=== PATIENT | male | born 2000 | race American Indian/Alaskan Native ===

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

== ENCOUNTER 2019-03-15 23:41 | Emergency (ER) | payer SELFPAY ==
[2019-03-16 00:07] VITALS: BP 127/77
== END 2019-03-16 00:08 | disposition left against medical advice (07) ==
LOC: ED 23:41
DX: R41.82 Altered mental status, unspecified (principal); Z53.21 Procedure and treatment not carried out due to patient leaving prior to being seen by health care provider

== ENCOUNTER 2019-11-29 16:33 | Emergency (ER) | payer SELFPAY ==
[2019-11-29] MEDS ORDERED: ZIPRASIDONE MESYLATE 20 MG VIAL IM ONE ×2 (16:47→16:48)
[2019-11-29 17:38] LABS: Basophils % (Auto) 0.4 % (0.0-1.8); Hematocrit 42.8 % (35.5-45.6); Hemoglobin 14.1 gm/dl (11.8-15.2); Lymphocytes # (Auto) 1.3 K/mm3 (1.2-5.4); Lymphocytes % (Auto) 20.5 % (13.4-35.0); Mean Corpuscular HGB Conc 33 % (32-34); Mean Corpuscular Volume 90 fl (84-94); Monocytes # (Auto) 0.4 K/mm3 (0.0-0.8); Monocytes % (Auto) 6.8 % (0.0-7.3); Platelet Count 136 K/mm3 (140-440); Red Blood Count 4.77 M/mm3 (3.65-5.03); Red Cell Distribution Width 13.6 % (13.2-15.2)
[2019-11-29 17:50] LABS: BUN/Creatinine Ratio 16; Blood Urea Nitrogen 16 mg/dL (9-20); Calcium 9.5 mg/dL (8.4-10.2); Hemolysis Index 13
--- NOTE | 2019-11-29 18:05 | Emergency Department Report ---
ED Psych HPI - General Chief Complaint: Psych Stated Complaint: MH EVAL Time Seen by Provider: 11/29/19 16:47 Source: EMS Mode of arrival: Stretcher - History of Present Illness MD Complaint: altered mental status -: days(s) (1) Associated Psychiatric Symptoms: racing thoughts, visual hallucinations, delusions Quality: constant Context: recent drug abuse (Family states that patient smoke something last night but they are unaware of what.) Details of Plan: Patient was found walking nude in her apartment complex today. He has very erratic behavior and is yelling things at random. Patient is when I asked him how he was feeling yelled "coronavirus" patient also yelling that he is homosexual and other unrelated things. Patient has no mental health history according to his mother - Related Data Previous Rx's Medication Instructions Recorded Last Taken Type Diclofenac Sodium 75 mg PO BID #14 tablet. 08/13/17 Unknown Rx Allergies Allergy/AdvReac Type Severity Reaction Status Date / Time No Known Allergies Allergy Unverified 08/13/17 04:29 ED Review of Systems ROS: Stated complaint: MH EVAL Other details as noted in HPI Comment: Unobtainable due to pts medical conditions ED Past Medical Hx - Past Medical History Previous Medical History?: Yes Hx Psychiatric Treatment: Yes (ADHD, Schizophernia) - Surgical History Past Surgical History?: No - Social History Smoking Status: Smoker, Current Status Unknown - Medications Home Medications: Home Medications Medication Instructions Recorded Confirmed Last Taken Type Diclofenac Sodium 75 mg PO BID #14 tablet. 08/13/17 Unknown Rx ED Physical Exam - General Limitations: Altered Mental Status General appearance: alert, anxious, in distress - Head Head exam: Present: atraumatic, normocephalic - Eye Eye exam: Present: normal appearance, PERRL, EOMI - ENT ENT exam: Present: normal orophraynx, mucous membranes moist - Neck Neck exam: Present: normal inspection - Respiratory Respiratory exam: Present: normal lung sounds bilaterally. Absent: respiratory distress, wheezes, rales, rhonchi - Cardiovascular Cardiovascular Exam: Present: regular rate, normal rhythm, normal heart sounds. Absent: systolic murmur, diastolic murmur, rubs, gallop - GI/Abdominal GI/Abdominal exam: Present: soft, normal bowel sounds. Absent: distended, tenderness, guarding, rebound - Rectal Rectal exam: Present: deferred - Extremities Exam Extremities exam: Present: normal inspection - Back Exam Back exam: Present: normal inspection - Neurological Exam Neurological exam: Present: alert, oriented X3 - Psychiatric Psychiatric exam: Present: agitated - Skin Skin exam: Present: warm, dry, intact, normal color. Absent: rash ED Course Vital Signs 11/29/19 16:59 Temperature 98.1 F Pulse Rate 110 H Respiratory 16 Rate Blood Pressure 157/80 [Left] O2 Sat by Pulse 96 Oximetry - Reevaluation(s) Reevaluation #1: 11/29/19 18:05 Patient was placed on a 1013 because of his erratic behavior. Patient also is medically cleared at this time for psychiatric evaluation. ED Medical Decision Making - Lab Data Result diagrams: 11/29/19 17:27 11/29/19 17:27 Lab Results 11/29/19 11/29/19 11/29/19 Range/Units 17:27 17:27 17:27 WBC 6.1 (4.5-11.0) K/mm3 RBC 4.77 (3.65-5.03) M/mm3 Hgb 14.1 (11.8-15.2) gm/dl Hct 42.8 (35.5-45.6) % MCV 90 (84-94) fl MCH 30 (28-32) pg MCHC 33 (32-34) % RDW 13.6 (13.2-15.2) % Plt Count 136 L (140-440) K/mm3 Lymph % (Auto) 20.5 (13.4-35.0) % Faulk % (Auto) 6.8 (0.0-7.3) % Eos % (Auto) 0.0 (0.0-4.3) % Baso % (Auto) 0.4 (0.0-1.8) % Lymph # 1.3 (1.2-5.4) K/mm3 Faulk # 0.4 (0.0-0.8) K/mm3 Eos # 0.0 (0.0-0.4) K/mm3 Baso # 0.0 (0.0-0.1) K/mm3 Seg Neutrophils % 72.3 H (40.0-70.0) % Seg Neutrophils # 4.4 (1.8-7.7) K/mm3 Sodium 135 L (137-145) mmol/L Potassium 3.6 (3.6-5.0) mmol/L Chloride 98.7 (98-107) mmol/L Carbon Dioxide 22 (22-30) mmol/L Anion Gap 18 mmol/L BUN 16 (9-20) mg/dL Creatinine 1.0 (0.8-1.5) mg/dL Estimated GFR > 60 ml/min BUN/Creatinine Ratio 16 % Glucose 99 (75-100) mg/dL Calcium 9.5 (8.4-10.2) mg/dL Salicylates < 0.3 L (2.8-20.0) mg/dL Acetaminophen (10.0-30.0) ug/mL Plasma/Serum Alcohol (0-0.07) % 11/29/19 11/29/19 Range/Units 17:27 17:27 WBC (4.5-11.0) K/mm3 RBC (3.65-5.03) M/mm3 Hgb (11.8-15.2) gm/dl Hct (35.5-45.6) % MCV (84-94) fl MCH (28-32) pg MCHC (32-34) % RDW (13.2-15.2) % Plt Count (140-440) K/mm3 Lymph % (Auto) (13.4-35.0) % Faulk % (Auto) (0.0-7.3) % Eos % (Auto) (0.0-4.3) % Baso % (Auto) (0.0-1.8) % Lymph # (1.2-5.4) K/mm3 Faulk # (0.0-0.8) K/mm3 Eos # (0.0-0.4) K/mm3 Baso # (0.0-0.1) K/mm3 Seg Neutrophils % (40.0-70.0) % Seg Neutrophils # (1.8-7.7) K/mm3 Sodium (137-145) mmol/L Potassium (3.6-5.0) mmol/L Chloride (98-107) mmol/L Carbon Dioxide (22-30) mmol/L Anion Gap mmol/L BUN (9-20) mg/dL Creatinine (0.8-1.5) mg/dL Estimated GFR ml/min BUN/Creatinine Ratio % Glucose (75-100) mg/dL Calcium (8.4-10.2) mg/dL Salicylates (2.8-20.0) mg/dL Acetaminophen < 5.0 L (10.0-30.0) ug/mL Plasma/Serum Alcohol < 0.01 (0-0.07) % Critical care attestation.: If time is entered above; I have spent that time in minutes in the direct care of this critically ill patient, excluding procedure time. ED Disposition Condition: Stable Referrals: PRIMARY CARE, [Primary Care Provider] - 3-5 Days
[2019-11-29 20:54] LABS: Bacteria,Urine 1+ /HPF (Negative); Bilirubin,Urine NEG (Negative); Blood,Urine NEG (Negative); Color,Urine Yellow (Yellow); Mucus,Urine FEW /HPF; Protein,Urine <15 mg/dL mg/dL (Negative); RBC,Urine < 1.0 /HPF (0.0-6.0); Urobilinogen,Urine < 2.0 mg/dL (<2.0)
[2019-11-29 21:01] LABS: Amphetamine Screen,Urine PRESUMPTIVE NEGATIVE; Benzodiazepines Screen,Urine PRESUMPTIVE NEGATIVE; Cannabinoid Screen,Urine PRESUMPTIVE NEGATIVE; Cocaine Screen,Urine PRESUMPTIVE NEGATIVE; Methadone Screen,Urine PRESUMPTIVE NEGATIVE; Opiate Screen,Urine PRESUMPTIVE NEGATIVE
[2019-11-30] MEDS ORDERED: ZIPRASIDONE MESYLATE 20 MG VIAL IM ONE (04:03)
[2019-11-30] MEDS ORDERED: LORazepam 2 MG/ML VIAL IM PRN (11:08)
--- NOTE | 2019-12-01 11:14 | Consultation ---
History of Present Illness - Reason for Consult Consult date: 12/01/19 Reason for consult: Psych eval - Chief Complaint Chief complaint: Confused - History of Present Psychiatric Illness The patient is a 18yo male who presented to the ED after the pt was found yelling and running naked through his apartment complex. Psychiatry consulted to evaluate patient, treat and recommend disposition. Patient is not able to engage in meaningful conversation. He is sleeping, arouses with verbal stimuli but drifts back to sleep. Per MENTAL HEALTH ASSESSMENT: Pt is a 18 year old male who presented to the ED after the pt was found yelling and running naked through his apartment complex. When [facility] administrator asked what brought the pt in, the pt replied, "Well I haven't come in in a while because I'm scared of needles." Attempted to call both individuals listed as emergency contacts (mother and father) for collateral as the pt is providing minimal information due to psychosis; no answer at either number. Pt is displaying evidence of thought disorder/psychosis. Pt appears to be responding to internal stimuli; although pt denies any AH or VH. The pt is irritable during the assessment. The pt responds with answers incongruent to the question. Pt was yelling "coronavirus" and "homosexual" upon arrival also making inappropriate sexual comments; pt was found yelling and walking nude through apartment (pt reports he does not remember any of this); pt was combative as well. Pt is oriented to person and place only. Pt has poor judgment with fair insight. Pt reports he is unsure if he has a mental health diagnosis or has received any mental health treatment. Pt denies any current suicidal thoughts, plans or intent. When asked about SI history, pt stated, "I don't think so; I'm not sure." Pt is a poor historian currently. Pt denies homicidal ideation. In regards to substance use, pt stated that he uses, "medicine, water and orange juice," when [facility] administrator asked about substance use. The [facility] administrator asked again and the pt stated, "maybe I use cocaine; I don't know." Pt's toxicology is negative. Psychiatric Review of Systems: Unable to obtain due to patient factors Social History Unable to obtain due to patient factors Family Psychiatric History Records reviewed. No pertinent family history. Allergies As listed above Medical Review of Systems: Unable to assess due to patient factors Physical Exam: Chest: Chest inspection reveals normal expansion. Normal respiratory effort. Skin: Warm and dry with normal turgor Mental Status Exam: Unable to assess due to patient factors Psychiatric Diagnoses: R/o Substance induced Psychosis. Recommendations: MEDICATIONS: Olanzapine 5mg qhs Geodon 10mg im q12h prn severe agitation MEDICAL: Per primary team DELIRIUM PRECAUTIONS: Please TURN OFF THE TV, re-orient patient frequently, keep lights on during the day, and minimize benzodiazepines and opiates as these medications could worsen patient's confusion. TIE FASTENER: Yes DISPOSITION: Acute inpatient psychiatric hospitalization when medically stable LEGAL STATUS: 1013 FOLLOW-UP: Will follow Please contact with any questions and/or concerns. Medications and Allergies Allergies Allergy/AdvReac Type Severity Reaction Status Date / Time No Known Allergies Allergy Unverified 08/13/17 04:29 Home Medications Medication Instructions Recorded Confirmed Last Taken Type No Known Home Medications [No 11/30/19 11/30/19 Unknown History Reported Home Medications] Active Meds: Active Medications Lorazepam (Ativan) 2 mg IM Q4H PRN PRN Reason: Agitation Last Admin: 11/30/19 11:26 Dose: 2 mg Documented by: Mental Status Exam - Vital signs Last Vital Signs Temp 97.8 F 12/01/19 07:25 Pulse 69 12/01/19 07:25 Resp 20 12/01/19 07:25 BP 137/79 12/01/19 07:25 Pulse Ox 100 12/01/19 07:25 Results Result Diagrams: 11/29/19 17:27 11/29/19 17:27 All other labs normal.
[2019-12-01] MEDS ORDERED: ZIPRASIDONE MESYLATE 20 MG VIAL IM PRN (11:15)
[2019-12-01 14:12] VITALS: BP 132/95
== END 2019-12-01 16:54 ==
LOC: ED 16:33
DX: F17.200 Nicotine dependence, unspecified, uncomplicated (principal); F20.89 Other schizophrenia; F90.8 Attention-deficit hyperactivity disorder, other type
CPT/HCPCS: 36415; 80048; 80307; 81001; 85025; 96372; 99285; J2060; J3486; 80320; G0480

== ENCOUNTER 2019-12-18 19:46 | Emergency (ER) | payer SELFPAY ==
[2019-12-18 20:37] LABS: Basophils % (Auto) 0.4 % (0.0-1.8); Eosinophils # (Auto) 0.1 K/mm3 (0.0-0.4); Eosinophils % (Auto) 0.7 % (0.0-4.3); Hematocrit 43.5 % (35.5-45.6); Hemoglobin 14.2 gm/dl (11.8-15.2); Lymphocytes # (Auto) 2.3 K/mm3 (1.2-5.4); Lymphocytes % (Auto) 31.3 % (13.4-35.0); Mean Corpuscular HGB Conc 33 % (32-34); Mean Corpuscular Volume 91 fl (84-94); Platelet Count 189 K/mm3 (140-440); Red Blood Count 4.77 M/mm3 (3.65-5.03); Red Cell Distribution Width 15.4 % (13.2-15.2)
[2019-12-18 20:43] LABS: Bilirubin,Urine NEG (Negative); Blood,Urine NEG (Negative); Color,Urine Yellow (Yellow); Protein,Urine <15 mg/dL mg/dL (Negative); Sperm,Urine 1+ /HPF (NP); Urobilinogen,Urine < 2.0 mg/dL (<2.0)
[2019-12-18 20:46] LABS: Amphetamine Screen,Urine PRESUMPTIVE NEGATIVE; Benzodiazepines Screen,Urine PRESUMPTIVE NEGATIVE; Cocaine Screen,Urine PRESUMPTIVE NEGATIVE; Methadone Screen,Urine PRESUMPTIVE NEGATIVE; Opiate Screen,Urine PRESUMPTIVE NEGATIVE
[2019-12-18 20:55] LABS: BUN/Creatinine Ratio 15; Blood Urea Nitrogen 12 mg/dL (9-20); Calcium 9.6 mg/dL (8.4-10.2); Hemolysis Index 9
[2019-12-18 21:02] LABS: Cannabinoid Screen,Urine PRESUMPTIVE POSITIVE
--- NOTE | 2019-12-18 21:34 | Emergency Department Report ---
ED Psych HPI - General Chief Complaint: Psych Stated Complaint: MH Time Seen by Provider: 12/18/19 20:27 Source: patient Mode of arrival: Ambulatory Limitations: No Limitations - History of Present Illness Initial Comments: 19-year-old male with a past medical history of ADHD and schizophrenia presents to the hospital. As per triage note patient was dropped off by his stepmother stating that patient left [facility] unknown to staff. However, patient presents with paperwork showing that he was actually discharged from [facility] on December 13. He was prescribed Depakote 500 mg to take 3 tablets p.o. daily, trazodone 100 mg p.o. daily, and and Zyprexa 10 mg daily. All meds to be taken at 9 PM. Patient still has a prescription so has not filled these medications. Patient also has paperwork regarding suicidal ideation instructions. Patient does complain of "a little bit" of suicidal ideation with plan to cut himself. Patient states he wants to stop smoking marijuana and cigarettes and admits to smoking a blunt 2 days ago and is concerned that we will arrest him because of this. He denies auditory visual hallucinations. He denies physical pain. - Related Data Home Medications Medication Instructions Recorded Confirmed Last Taken Divalproex ER [DepaKOTE ER] 1,500 mg PO QHS 12/18/19 12/18/19 Unknown OLANzapine [ZyPREXA] 10 mg PO DAILY 12/18/19 12/18/19 Unknown traZODone [Desyrel] 100 mg PO QHS 12/18/19 12/18/19 Unknown Allergies Allergy/AdvReac Type Severity Reaction Status Date / Time No Known Allergies Allergy Unverified 08/13/17 04:29 ED Review of Systems ROS: Stated complaint: MH Other details as noted in HPI Comment: All other systems reviewed and negative ED Past Medical Hx - Past Medical History Previous Medical History?: Yes Hx Psychiatric Treatment: Yes (ADHD, Schizophernia) - Surgical History Past Surgical History?: No - Social History Smoking Status: Current Every Day Smoker Substance Use Type: Alcohol, Marijuana - Medications Home Medications: Home Medications Medication Instructions Recorded Confirmed Last Taken Type Divalproex ER [DepaKOTE ER] 1,500 mg PO QHS 12/18/19 12/18/19 Unknown History OLANzapine [ZyPREXA] 10 mg PO DAILY 12/18/19 12/18/19 Unknown History traZODone [Desyrel] 100 mg PO QHS 12/18/19 12/18/19 Unknown History ED Physical Exam - General Limitations: No Limitations - Other Other exam information: General: No acute distress Head: Atraumatic Eyes: normal appearance ENT: Moist mucous membranes Neck: Normal appearance, no midline tenderness Chest: Clear to auscultation bilaterally CV: Regular rate and rhythm Abdomen: Soft, normal bowel sounds, nontender, nondistended, no rebound or guarding Back: Normal inspection Extremity: Normal inspection, full range of motion Neuro: Alert O x 3, no facial asymmetry, speech clear, no gross motor sensory deficit Psych: Appropriate behavior Skin: No rash ED Course Vital Signs 12/18/19 12/18/19 12/18/19 19:51 20:33 21:00 Temperature 98.1 F 98.8 F Pulse Rate 85 85 Respiratory 20 16 16 Rate Blood Pressure 149/76 Blood Pressure 136/83 [Left] O2 Sat by Pulse 99 99 99 Oximetry ED Medical Decision Making - Lab Data Result diagrams: 12/18/19 20:19 12/18/19 20:19 Lab Results 12/18/19 12/18/19 12/18/19 Range/Units 20:19 20:19 20:19 WBC (4.5-11.0) K/mm3 RBC (3.65-5.03) M/mm3 Hgb (11.8-15.2) gm/dl Hct (35.5-45.6) % MCV (84-94) fl MCH (28-32) pg MCHC (32-34) % RDW (13.2-15.2) % Plt Count (140-440) K/mm3 Lymph % (Auto) (13.4-35.0) % Teller % (Auto) (0.0-7.3) % Eos % (Auto) (0.0-4.3) % Baso % (Auto) (0.0-1.8) % Lymph # (1.2-5.4) K/mm3 Teller # (0.0-0.8) K/mm3 Eos # (0.0-0.4) K/mm3 Baso # (0.0-0.1) K/mm3 Seg Neutrophils % (40.0-70.0) % Seg Neutrophils # (1.8-7.7) K/mm3 Sodium 139 (137-145) mmol/L Potassium 4.0 (3.6-5.0) mmol/L Chloride 101.5 (98-107) mmol/L Carbon Dioxide 22 (22-30) mmol/L Anion Gap 20 mmol/L BUN 12 (9-20) mg/dL Creatinine 0.8 (0.8-1.5) mg/dL Estimated GFR > 60 ml/min BUN/Creatinine Ratio 15 % Glucose 114 H (75-100) mg/dL Calcium 9.6 (8.4-10.2) mg/dL Urine Color (Yellow) Urine Turbidity (Clear) Urine pH (5.0-7.0) Ur Specific Offerman (1.003-1.030) Urine Protein (Negative) mg/dL Urine Glucose (UA) (Negative) mg/dL Urine Ketones (Negative) mg/dL Urine Blood (Negative) Urine Nitrite (Negative) Urine Bilirubin (Negative) Urine Urobilinogen (<2.0) mg/dL Ur Leukocyte Esterase (Negative) Urine WBC (Auto) (0.0-6.0) /HPF Urine RBC (Auto) (0.0-6.0) /HPF U Epithel Cells (Auto) (0-13.0) /HPF Urine Sperm (SENIOR MANU[employer]URING TEST ENGINEER) /HPF Salicylates (2.8-20.0) mg/dL Urine Opiates Screen Urine Methadone Screen Acetaminophen < 5.0 L (10.0-30.0) ug/mL Ur Barbiturates Screen Valproic Acid (50-100) ug/mL Ur Phencyclidine Scrn Ur Amphetamines Screen U Benzodiazepines Scrn Urine Cocaine Screen U Marijuana (THC) Screen Drugs of Abuse Note Plasma/Serum Alcohol < 0.01 (0-0.07) % 12/18/19 12/18/19 12/18/19 Range/Units 20:19 20:23 20:23 WBC 7.3 (4.5-11.0) K/mm3 RBC 4.77 (3.65-5.03) M/mm3 Hgb 14.2 (11.8-15.2) gm/dl Hct 43.5 (35.5-45.6) % MCV 91 (84-94) fl MCH 30 (28-32) pg MCHC 33 (32-34) % RDW 15.4 H (13.2-15.2) % Plt Count 189 (140-440) K/mm3 Lymph % (Auto) 31.3 (13.4-35.0) % Teller % (Auto) 13.0 H (0.0-7.3) % Eos % (Auto) 0.7 (0.0-4.3) % Baso % (Auto) 0.4 (0.0-1.8) % Lymph # 2.3 (1.2-5.4) K/mm3 Teller # 1.0 H (0.0-0.8) K/mm3 Eos # 0.1 (0.0-0.4) K/mm3 Baso # 0.0 (0.0-0.1) K/mm3 Seg Neutrophils % 54.6 (40.0-70.0) % Seg Neutrophils # 4.0 (1.8-7.7) K/mm3 Sodium (137-145) mmol/L Potassium (3.6-5.0) mmol/L Chloride (98-107) mmol/L Carbon Dioxide (22-30) mmol/L Anion Gap mmol/L BUN (9-20) mg/dL Creatinine (0.8-1.5) mg/dL Estimated GFR ml/min BUN/Creatinine Ratio % Glucose (75-100) mg/dL Calcium (8.4-10.2) mg/dL Urine Color Yellow (Yellow) Urine Turbidity Clear (Clear) Urine pH 7.0 (5.0-7.0) Ur Specific Offerman 1.015 (1.003-1.030) Urine Protein <15 mg/dl (Negative) mg/dL Urine Glucose (UA) Neg (Negative) mg/dL Urine Ketones Neg (Negative) mg/dL Urine Blood Neg (Negative) Urine Nitrite Neg (Negative) Urine Bilirubin Neg (Negative) Urine Urobilinogen < 2.0 (<2.0) mg/dL Ur Leukocyte Esterase Neg (Negative) Urine WBC (Auto) 1.0 (0.0-6.0) /HPF Urine RBC (Auto) 3.0 (0.0-6.0) /HPF U Epithel Cells (Auto) < 1.0 (0-13.0) /HPF Urine Sperm 1+ (SENIOR MANUFACTURING TEST ENGINEER) /HPF Salicylates (2.8-20.0) mg/dL Urine Opiates Screen Presumptive negative Urine Methadone Screen Presumptive negative Acetaminophen (10.0-30.0) ug/mL Ur Barbiturates Screen Presumptive negative Valproic Acid (50-100) ug/mL Ur Phencyclidine Scrn Presumptive negative Ur Amphetamines Screen Presumptive negative U Benzodiazepines Scrn Presumptive negative Urine Cocaine Screen Presumptive negative U Marijuana (THC) Screen Presumptive positive Drugs of Abuse Note Disclamer Plasma/Serum Alcohol (0-0.07) % 12/18/19 Range/Units 20:27 WBC (4.5-11.0) K/mm3 RBC (3.65-5.03) M/mm3 Hgb (11.8-15.2) gm/dl Hct (35.5-45.6) % MCV (84-94) fl MCH (28-32) pg MCHC (32-34) % RDW (13.2-15.2) % Plt Count (140-440) K/mm3 Lymph % (Auto) (13.4-35.0) % Teller % (Auto) (0.0-7.3) % Eos % (Auto) (0.0-4.3) % Baso % (Auto) (0.0-1.8) % Lymph # (1.2-5.4) K/mm3 Teller # (0.0-0.8) K/mm3 Eos # (0.0-0.4) K/mm3 Baso # (0.0-0.1) K/mm3 Seg Neutrophils % (40.0-70.0) % Seg Neutrophils # (1.8-7.7) K/mm3 Sodium (137-145) mmol/L Potassium (3.6-5.0) mmol/L Chloride (98-107) mmol/L Carbon Dioxide (22-30) mmol/L Anion Gap mmol/L BUN (9-20) mg/dL Creatinine (0.8-1.5) mg/dL Estimated GFR ml/min BUN/Creatinine Ratio % Glucose (75-100) mg/dL Calcium (8.4-10.2) mg/dL Urine Color (Yellow) Urine Turbidity (Clear) Urine pH (5.0-7.0) Ur Specific Offerman (1.003-1.030) Urine Protein (Negative) mg/dL Urine Glucose (UA) (Negative) mg/dL Urine Ketones (Negative) mg/dL Urine Blood (Negative) Urine Nitrite (Negative) Urine Bilirubin (Negative) Urine Urobilinogen (<2.0) mg/dL Ur Leukocyte Esterase (Negative) Urine WBC (Auto) (0.0-6.0) /HPF Urine RBC (Auto) (0.0-6.0) /HPF U Epithel Cells (Auto) (0-13.0) /HPF Urine Sperm (SENIOR MANUFACTURING TEST ENGINEER) /HPF Salicylates < 0.3 L (2.8-20.0) mg/dL Urine Opiates Screen Urine Methadone Screen Acetaminophen (10.0-30.0) ug/mL Ur Barbiturates Screen Valproic Acid 57.5 (50-100) ug/mL Ur Phencyclidine Scrn Ur Amphetamines Screen U Benzodiazepines Scrn Urine Cocaine Screen U Marijuana (THC) Screen Drugs of Abuse Note Plasma/Serum Alcohol (0-0.07) % - Medical Decision Making Patient presents with suicidal ideation with recent discharge from psychiatric hospital. Patient has a prescription for his medication is unclear why his stepmother dropped him back off in the ED. Patient is medically cleared pending psychiatric evaluation and collateral information collection tomorrow Recently prescribed medications will be reinitiated while in the ED - Differential Diagnosis Psychosis, suicidal, bipolar, schizophrenia Critical Care Time: No Critical care attestation.: If time is entered above; I have spent that time in minutes in the direct care of this critically ill patient, excluding procedure time. ED Disposition Clinical Impression: Suicidal ideation Disposition: DC/TX-65 PSY HOSP/PSY UNIT Is pt being admited?: No Does the pt Need Aspirin: No Condition: Stable Time of Disposition: 22:46
[2019-12-18] MEDS ORDERED: DIVALPROEX ER 500 MG TAB PO ONE (22:07)
[2019-12-18] MEDS ORDERED: traZODone 50 MG TAB PO ONE (22:07)
[2019-12-19] MEDS ORDERED: ZIPRASIDONE MESYLATE 20 MG VIAL IM ONE ×2 (14:34→14:40)
[2019-12-19] MEDS ORDERED: WATER FOR INJ Sterile (PF) 10 ML ONE (14:35)
[2019-12-19] MEDS ORDERED: DIVALPROEX ER 500 MG TAB PO SCH (22:00)
[2019-12-19] MEDS ORDERED: traZODone 100 MG TAB PO SCH (22:00)
[2019-12-20 07:55] VITALS: BP 108/57
== END 2019-12-20 10:10 ==
LOC: ED 19:46
DX: R45.851 Suicidal ideations (principal); F90.9 Attention-deficit hyperactivity disorder, unspecified type; F20.9 Schizophrenia, unspecified; F17.200 Nicotine dependence, unspecified, uncomplicated; F12.10 Cannabis abuse, uncomplicated; Z79.899 Other long term (current) drug therapy
CPT/HCPCS: 36415; 80048; 80164; 80307; 81001; 85025; 96372; 99285; J3486; 80320; G0480

== ENCOUNTER 2021-01-11 18:15 | Emergency (ER) | payer OTHER ==
[2021-01-13 12:29] VITALS: BP 115/73
== END 2021-01-13 12:05 | disposition home or self-care (01) ==
LOC: ED 18:15
DX: F23 Brief psychotic disorder (principal); Z20.822 Contact with and (suspected) exposure to COVID-19; Z79.899 Other long term (current) drug therapy
CPT/HCPCS: 36415; 70450; 80053; 80307; 81001; 83690; 85025; 99285; U0003; 80320; G0480

== ENCOUNTER 2021-01-26 22:37 | Emergency (ER) | payer OTHER, SELFPAY ==
[2021-01-26 23:57] LABS: Basophils % (Auto) 0.2 % (0.0-1.8); Eosinophils # (Auto) 0.2 K/mm3 (0.0-0.4); Eosinophils % (Auto) 1.3 % (0.0-4.3); Hematocrit 40.3 % (35.5-45.6); Hemoglobin 13.6 gm/dl (11.8-15.2); Lymphocytes # (Auto) 3.3 K/mm3 (1.2-5.4); Lymphocytes % (Auto) 28.4 % (13.4-35.0); Mean Corpuscular HGB Conc 34 % (32-34); Mean Corpuscular Volume 92 fl (84-94); Monocytes # (Auto) 1.1 K/mm3 (0.0-0.8); Monocytes % (Auto) 9.6 % (0.0-7.3); Platelet Count 151 K/mm3 (140-440); Red Blood Count 4.38 M/mm3 (3.65-5.03); Red Cell Distribution Width 14.8 % (13.2-15.2)
--- NOTE | 2021-01-27 00:33 | Emergency Department Report ---
HPI <BETRODEVEN - Last Filed: 01/28/21 12:03> - HPI HPI: This is a 20-year-old -Citizen Of [place] male who presents to the emergency department for a mental health evaluation. Initially the patient tells me that "I need to see a psychiatrist." I note that the patient was just recently here and sent to [place] and the patient says that he was just discharged from there yesterday. When asked why he needs to return to the emergency department this evening he says " I need to learn how to read and write." The patient also says that he "needs to go to rehab for black in [facility]." Initially, through triage, the patient says that he was hearing voices that are telling him to stay inside until he can get medical help. At the time of my examination the patient denies any auditory or visual hallucinations or any suicidal ideations. <YOLANDE SEYMOUR S - Last Filed: 01/31/21 16:15> - General Chief Complaint: Psych Time Seen by Provider: 01/27/21 00:01 ED Past Medical Hx <DEVEN THOMSON - Last Filed: 01/28/21 12:03> - Past Medical History Previous Medical History?: Yes Hx Psychiatric Treatment: Yes (ADHD, Schizophrenia, bipolar) - Surgical History Past Surgical History?: No - Social History Smoking Status: Current Every Day Smoker Substance Use Type: Alcohol, Marijuana <YOLANDE SEYMOUR - Last Filed: 01/31/21 16:15> - Medications Home Medications: Home Medications Medication Instructions Recorded Confirmed Last Taken Type Divalproex ER [DepaKOTE ER] 1,500 mg PO QHS 12/18/19 12/18/19 Unknown History OLANzapine [ZyPREXA] 10 mg PO DAILY 12/18/19 12/18/19 Unknown History traZODone [Desyrel] 100 mg PO QHS 12/18/19 12/18/19 Unknown History ED Review of Systems ROS: Stated complaint: HEARING VOICES Other details as noted in HPI <DEVEN THOMSON - Last Filed: 01/28/21 12:03> ROS: Stated complaint: HEARING VOICES Other details as noted in HPI Comment: All other systems reviewed and negative Constitutional: denies: chills, fever Eyes: denies: vision change Respiratory: denies: cough, shortness of breath Cardiovascular: denies: chest pain, palpitations Gastrointestinal: denies: abdominal pain, vomiting Musculoskeletal: denies: back pain, arthralgia Neurological: denies: headache Psychiatric: denies: homicidal thoughts, suicidal thoughts <YOLANDE SEYMOUR - Last Filed: 01/31/21 16:15> Physical Exam - Physical Exam Vital Signs: Vital Signs 01/26/21 01/27/21 01/27/21 23:27 02:48 08:12 Temperature 98.3 F 98.3 F 98.9 F Pulse Rate 92 H 78 82 Respiratory 16 18 20 Rate Blood Pressure 133/71 Blood Pressure 105/51 125/68 [Right] O2 Sat by Pulse 97 100 99 Oximetry 01/27/21 01/27/21 01/28/21 20:13 20:17 02:00 Temperature 97.6 F 98 F Pulse Rate 68 70 Respiratory 18 18 18 Rate Blood Pressure Blood Pressure 130/70 120/64 [Right] O2 Sat by Pulse 99 99 Oximetry 01/28/21 09:14 Temperature 98.6 F Pulse Rate 88 Respiratory 20 Rate Blood Pressure Blood Pressure 131/83 [Right] O2 Sat by Pulse 100 Oximetry <DEVEN THOMSON - Last Filed: 01/28/21 12:03> - Physical Exam Vital Signs: Vital Signs 01/26/21 23:27 Temperature 98.3 F Pulse Rate 92 H Respiratory 16 Rate Blood Pressure 133/71 O2 Sat by Pulse 97 Oximetry Physical Exam: GENERAL: The patient is well-developed well-nourished. HENT: Normocephalic. Atraumatic. Patient has moist mucous membranes. EYES: Extraocular motions are intact. NECK: Supple. Trachea is midline. CHEST/LUNGS: Clear to auscultation. There is no respiratory distress noted. HEART/CARDIOVASCULAR: Regular. There is no tachycardia. There is no murmur. ABDOMEN: Abdomen is soft, nontender. Patient has normal bowel sounds. SKIN: Skin is warm and dry. NEURO: The patient is awake, alert, and cooperative. Normal speech. MUSCULOSKELETAL: There is no tenderness or deformity. <YOLANDE SEYMOUR - Last Filed: 01/31/21 16:15> ED Course Vital Signs 01/26/21 01/27/21 01/27/21 23:27 02:48 08:12 Temperature 98.3 F 98.3 F 98.9 F Pulse Rate 92 H 78 82 Respiratory 16 18 20 Rate Blood Pressure 133/71 Blood Pressure 105/51 125/68 [Right] O2 Sat by Pulse 97 100 99 Oximetry 01/27/21 01/27/21 01/28/21 20:13 20:17 02:00 Temperature 97.6 F 98 F Pulse Rate 68 70 Respiratory 18 18 18 Rate Blood Pressure Blood Pressure 130/70 120/64 [Right] O2 Sat by Pulse 99 99 Oximetry 01/28/21 09:14 Temperature 98.6 F Pulse Rate 88 Respiratory 20 Rate Blood Pressure Blood Pressure 131/83 [Right] O2 Sat by Pulse 100 Oximetry <DEVEN THOMSON - Last Filed: 01/28/21 12:03> Vital Signs 01/26/21 23:27 Temperature 98.3 F Pulse Rate 92 H Respiratory 16 Rate Blood Pressure 133/71 O2 Sat by Pulse 97 Oximetry <YOLANDE SEYMOUR - Last Filed: 01/31/21 16:15> ED Medical Decision Making - Lab Data Result diagrams: 01/26/21 23:33 01/26/21 23:33 - Medical Decision Making Patient has been accepted to [facility] at this time the patient will be transferred. <DEVEN THOMSON - Last Filed: 01/28/21 12:03> - Lab Data Result diagrams: 01/26/21 23:33 01/26/21 23:33 - Medical Decision Making This patient presents to the emergency department for a mental health evaluation. He just was discharged from [place] yesterday. He is unable to tell me as to the reason why he has returned to the emergency department for a another mental health evaluation. At first the patient said something about learning to read and write. Then he started talking about rehabilitation from tobacco use. Through triage the patient mentioned auditory hallucinations. Patient asked for a snack pack. I agreed that he should be fed but strangely the patient then began becoming tearful about getting multiple snack packs. Vital signs have been reassuring throughout his ED course thus far. The patient's labs have been mostly unremarkable thus far including CBC, metabolic panel, blood alcohol level. I do not yet have a urine sample for urinalysis and UDS. If the patient has a urinary tract infection he will require antibiotics. It is possible that a finding on the UDS may explain the patient's behavior, but the patient does have a history of schizophrenia and bipolar disorder. The patient will be seen tomorrow by the psychiatric buckle coverer, or the psychiatric midlevel provider, and they will assist with further disposition. If the decision is made for the patient to go back for inpatient stabilization, I would consider this patient medically cleared. <YOLANDE SEYMOUR - Last Filed: 01/31/21 16:15> Critical care attestation.: If time is entered above; I have spent that time in minutes in the direct care of this critically ill patient, excluding procedure time. <DEVEN THOMSON - Last Filed: 01/28/21 12:03> Critical Care Time: No Critical care attestation.: If time is entered above; I have spent that time in minutes in the direct care of this critically ill patient, excluding procedure time. <YOLANDE SEYMOUR - Last Filed: 01/31/21 16:15> ED Disposition Is pt being admited?: No Does the pt Need Aspirin: No Time of Disposition: 12:03 <DEVEN THOMSON - Last Filed: 01/28/21 12:03> Is pt being admited?: No <YOLANDE SEYMOUR - Last Filed: 01/31/21 16:15> Clinical Impression: Bipolar disorder, Schizophrenia, Medical clearance for psychiatric admission Disposition: [id number]/TX-[id number] PSY HOSP/PSY UNIT Condition: Stable Referrals: PRIMARY CARE, [Primary Care Provider] - 3-5 Days
[2021-01-27 00:48] LABS: BUN/Creatinine Ratio 23; Blood Urea Nitrogen 21 mg/dL (9-20); Calcium 9.5 mg/dL (8.4-10.2); Hemolysis Index 7
[2021-01-27 01:28] LABS: Bilirubin,Urine NEG (Negative); Blood,Urine NEG (Negative); Color,Urine Yellow (Yellow); Mucus,Urine 1+ /HPF; Urobilinogen,Urine < 2.0 mg/dL (<2.0)
[2021-01-27 01:35] LABS: Amphetamine Screen,Urine Negative; Benzodiazepines Screen,Urine Negative; Cocaine Screen,Urine Negative; Methadone Screen,Urine Negative; Opiate Screen,Urine Negative
[2021-01-27 01:47] LABS: Cannabinoid Screen,Urine Positive
--- NOTE | 2021-01-27 09:38 | Consultation ---
History of Present Illness - Reason for Consult Consult date: 01/27/21 Reason for consult: MHE Requesting physician: YOLANDE SEYMOUR - History of Present Psychiatric Illness Per ED Provider: This is a 20-year-old -[place] male who presents to the emergency department for a mental health evaluation. Initially the patient tell s me that "I need to see a psychiatrist." I note that the patient was just recently here and sent to [place] and the patient says that he was just discharged from there yesterday. When asked why he needs to return to the emergency department this evening he says " I need to learn how to read and write." The patient also says that he "needs to go to rehab for black in [facility]." Initially, through triage, the patient says that he was hearing voices that are telling him to stay inside until he can get medical help. At the time of my examination the patient denies any auditory or visual hallucinations or any suicidal ideations. PSYCH HPI Patient is a 20-year-old single, unemployed -[place] male who is known to me from prior encounter with past psychiatric history of schizophrenia who presented to the ED for mental health evaluation and requesting to see a psychiatrist. Patient reported he needed to see because he is a good psychiatrist. Endorses that he doesnt smoke weed anymore but his last weed was laced with something. Pt is restless and hyperactive, constantly pacing and jumping from one topic to another even when redirected he is very tangential. Patient then thanked me for drawing his blood yesterday, informed patient I did not draw blood and he has me confused with some else. PAST PSYCHIATRIC HISTORY Diagnoses: Schizophrenia Suicide attempts or Self-harm behavior: Yes Prior psychiatric hospitalizations: Yes Substance Abuse history: Marijuana Previous psychiatric medications tried: Noncompliant Outpatient treatment: Noncompliant PAST MEDICAL HISTORY: n/a Family Psychiatric History: None reported or documented SOCIAL HISTORY Marital Status: single Living Arrangements: with mom Employment Status: unemployed Access to guns/weapons: n/a Education: n/a History of Abuse: Legal History:Yes REVIEW OF SYSTEMS Constitutional: Negative for weight loss ENT: Negative for stridor Respiratory: Negative for cough or hemoptysis All other systems reviewed and are negative MENTAL STATUS EXAMINATION General Appearance and Behavior: Age appropriate, fair hygiene, wearing appropriate clothes, lying in bed, poor eye contact, cooperative irritable with questioning. Cooperation: Participating, Hostile and Guarded Psychomotor Behavior: unremarkable and within normal limits Mood: I don't know Affect and affective range: flat, preservative Thought Process: Illogical, Blocked, Thought Content: Hopelessness, Helplessness, Speech: Normal volume, Regular rate and rhythm, Intellectual Functioning: Average Suicidal Ideation: Denies SI Homicidal Ideation: Denies HI Impulse Control: Impaired Insight and Judgment: Limited insight and judgment Memory: Short term memory intact Attention: Divided attention impaired Orientation: Alert, oriented, Diagnoses: Acute schizoaffective disorder F 25.9 Treatment Plan MEDICATIONS: Risks, benefits and alternatives of medications discussed with the patient, questions answered and consent obtained from patient. PSYCHOTHERAPY: Supportive psychotherapy provided MEDICAL: Per primary team DELIRIUM PRECAUTIONS: Please re-orient patient frequently, keep lights on during the day, and minimize benzodiazepines and opiates as these medications could worsen patient's confusion. SQL DATA ARCHITECT: DISPOSITION: Do Recommend acute inpatient psychiatric hospitalization at this time. Case discussed with Dr. Harden who agrees with current disposition LEGAL STATUS: 1013 FOLLOW-UP: Will follow Thank you for the consult. Please contact with any questions and/or concerns. Medications and Allergies Allergies Allergy/AdvReac Type Severity Reaction Status Date / Time No Known Allergies Allergy Unverified 08/13/17 04:29 Home Medications Medication Instructions Recorded Confirmed Last Taken Type Divalproex ER [DepaKOTE ER] 1,500 mg PO QHS 12/18/19 12/18/19 Unknown History OLANzapine [ZyPREXA] 10 mg PO DAILY 12/18/19 12/18/19 Unknown History traZODone [Desyrel] 100 mg PO QHS 12/18/19 12/18/19 Unknown History Mental Status Exam - Vital signs Last Vital Signs Temp 98.9 F 01/27/21 08:12 Pulse 82 01/27/21 08:12 Resp 20 01/27/21 08:12 BP 125/68 01/27/21 08:12 Pulse Ox 99 01/27/21 08:12 Results Result Diagrams: 01/26/21 23:33 01/26/21 23:33 Abnormal lab results 01/26/21 01/26/21 01/26/21 Range/Units 23:33 23:33 23:33 WBC (4.5-11.0) K/mm3 [place] % (Auto) (0.0-7.3) % [place] # (Auto) (0.0-0.8) K/mm3 BUN 21 H (9-20) mg/dL Urine pH (5.0-7.0) Salicylates < 0.3 L (2.8-20.0) mg/dL Acetaminophen 5.0 L (10.0-30.0) ug/mL 01/26/21 01/27/21 Range/Units 23:33 01:07 WBC 11.6 H (4.5-11.0) K/mm3 [place] % (Auto) 9.6 H (0.0-7.3) % [place] # (Auto) 1.1 H (0.0-0.8) K/mm3 BUN (9-20) mg/dL Urine pH 8.0 H (5.0-7.0) Salicylates (2.8-20.0) mg/dL Acetaminophen (10.0-30.0) ug/mL All other labs normal.
[2021-01-27] MEDS: VALPROIC ACID 250 MG CAP PO SCH ×2 (09:54→22:30)
[2021-01-27] MEDS: HALOPERIDOL 2 MG TAB PO SCH ×2 (09:55→22:30)
[2021-01-27] MEDS ORDERED: ACETAMINOPHEN 325 MG TAB PO PRN (10:22)
[2021-01-27] MEDS ORDERED: diphenhydrAMINE 25 MG CAP PO PRN (10:22)
[2021-01-27] MEDS ORDERED: LORazepam 2 MG/ML VIAL IM PRN (10:22)
--- NOTE | 2021-01-27 11:00 | Event Note ---
Date: 01/27/21 The patient was evaluated in the emergency department for symptoms described in the history of present illness. He/she was evaluated in the context of the global COVID-19 pandemic, which necessitated consideration that the patient might be at risk for infection with the virus that causes COVID-19. Institutional protocols and algorithms that pertain to the evaluation of patients at risk for COVID-19 are in a state of rapid change based on information released by regulatory bodies including the CDC and federal and state organizations. These policies and algorithms were followed during the patient's care in the emergency department. Please note that these policies, procedures and recommendations changed on a rapid basis. [id number] evaluation performed on this patient. He is currently resting comfortably in room 13 on seclusion. Nursing team reports the patient was walking around, pacing, verbally threatening and aggressive, did not respond to show of force, or verbal de-escalation techniques. Vital signs, laboratory studies reviewed and appreciated, psychiatric recommendations reviewed and appreciated, patient medically cleared on initial ER evaluation, and at this time, he does not appear to have an emergent medical condition that would preclude psychiatric hospitalization, admission and consultation. He will be closely monitored while in room 13. Additional holding orders are placed by myself. The patient is breathing spontaneously, moving 4 extremities, and at the moment, does not appear to be in significant distress. Vital Signs 01/26/21 01/27/21 01/27/21 23:27 02:48 08:12 Temperature 98.3 F 98.3 F 98.9 F Pulse Rate 92 H 78 82 Respiratory 16 18 20 Rate Blood Pressure 133/71 Blood Pressure 105/51 125/68 [Right] O2 Sat by Pulse 97 100 99 Oximetry Lab Results 01/26/21 01/26/21 01/26/21 Range/Units 23:33 23:33 23:33 WBC (4.5-11.0) K/mm3 RBC (3.65-5.03) M/mm3 Hgb (11.8-15.2) gm/dl Hct (35.5-45.6) % MCV (84-94) fl MCH (28-32) pg MCHC (32-34) % RDW (13.2-15.2) % Plt Count (140-440) K/mm3 Lymph % (Auto) (13.4-35.0) % [place] % (Auto) (0.0-7.3) % Eos % (Auto) (0.0-4.3) % Baso % (Auto) (0.0-1.8) % Lymph # (Auto) (1.2-5.4) K/mm3 [place] # (Auto) (0.0-0.8) K/mm3 Eos # (Auto) (0.0-0.4) K/mm3 Baso # (Auto) (0.0-0.1) K/mm3 Seg Neutrophils % (40.0-70.0) % Seg Neutrophils # (1.8-7.7) K/mm3 Sodium 142 (137-145) mmol/L Potassium 4.5 (3.6-5.0) mmol/L Chloride 104.5 (98-107) mmol/L Carbon Dioxide 24 (22-30) mmol/L Anion Gap 18 mmol/L BUN 21 H (9-20) mg/dL Creatinine 0.9 (0.8-1.3) mg/dL Estimated GFR > 60 ml/min BUN/Creatinine Ratio 23 % Glucose 87 (75-100) mg/dL Calcium 9.5 (8.4-10.2) mg/dL Urine Color (Yellow) Urine Turbidity (Clear) Urine pH (5.0-7.0) Ur Specific [place] (1.003-1.030) Urine Protein (Negative) mg/dL Urine Glucose (UA) (Negative) mg/dL Urine Ketones (Negative) mg/dL Urine Blood (Negative) Urine Nitrite (Negative) Urine Bilirubin (Negative) Urine Urobilinogen (<2.0) mg/dL Ur Leukocyte Esterase (Negative) Urine WBC (Auto) (0.0-6.0) /HPF Urine RBC (Auto) (0.0-6.0) /HPF Urine Mucus /HPF Salicylates < 0.3 L (2.8-20.0) mg/dL Urine Opiates Screen Urine Methadone Screen Acetaminophen 5.0 L (10.0-30.0) ug/mL Ur Barbiturates Screen Ur Phencyclidine Scrn Ur Amphetamines Screen U Benzodiazepines Scrn Urine Cocaine Screen U Marijuana (THC) Screen Drugs of Abuse Note Plasma/Serum Alcohol (0-0.07) % 05/27/21 05/27/21 05/28/21 Range/Units 23:33 23:33 01:07 WBC 11.6 H (4.5-11.0) K/mm3 RBC 4.38 (3.65-5.03) M/mm3 Hgb 13.6 (11.8-15.2) gm/dl Hct 40.3 (35.5-45.6) % MCV 92 (84-94) fl MCH 31 (28-32) pg MCHC 34 (32-34) % RDW 14.8 (13.2-15.2) % Plt Count 151 (140-440) K/mm3 Lymph % (Auto) 28.4 (13.4-35.0) % [place] % (Auto) 9.6 H (0.0-7.3) % Eos % (Auto) 1.3 (0.0-4.3) % Baso % (Auto) 0.2 (0.0-1.8) % Lymph # (Auto) 3.3 (1.2-5.4) K/mm3 [place] # (Auto) 1.1 H (0.0-0.8) K/mm3 Eos # (Auto) 0.2 (0.0-0.4) K/mm3 Baso # (Auto) 0.0 (0.0-0.1) K/mm3 Seg Neutrophils % 60.5 (40.0-70.0) % Seg Neutrophils # 7.0 (1.8-7.7) K/mm3 Sodium (137-145) mmol/L Potassium (3.6-5.0) mmol/L Chloride (98-107) mmol/L Carbon Dioxide (22-30) mmol/L Anion Gap mmol/L BUN (9-20) mg/dL Creatinine (0.8-1.3) mg/dL Estimated GFR ml/min BUN/Creatinine Ratio % Glucose (75-100) mg/dL Calcium (8.4-10.2) mg/dL Urine Color Yellow (Yellow) Urine Turbidity Clear (Clear) Urine pH 8.0 H (5.0-7.0) Ur Specific [place] 1.029 (1.003-1.030) Urine Protein 30 mg/dl (Negative) mg/dL Urine Glucose (UA) Neg (Negative) mg/dL Urine Ketones Neg (Negative) mg/dL Urine Blood Neg (Negative) Urine Nitrite Neg (Negative) Urine Bilirubin Neg (Negative) Urine Urobilinogen < 2.0 (<2.0) mg/dL Ur Leukocyte Esterase Neg (Negative) Urine WBC (Auto) 4.0 (0.0-6.0) /HPF Urine RBC (Auto) 3.0 (0.0-6.0) /HPF Urine Mucus 1+ /HPF Salicylates (2.8-20.0) mg/dL Urine Opiates Screen Urine Methadone Screen Acetaminophen (10.0-30.0) ug/mL Ur Barbiturates Screen Ur Phencyclidine Scrn Ur Amphetamines Screen U Benzodiazepines Scrn Urine Cocaine Screen U Marijuana (THC) Screen Drugs of Abuse Note Plasma/Serum Alcohol < 0.01 (0-0.07) % 01/27/21 Range/Units 01:07 WBC (4.5-11.0) K/mm3 RBC (3.65-5.03) M/mm3 Hgb (11.8-15.2) gm/dl Hct (35.5-45.6) % MCV (84-94) fl MCH (28-32) pg MCHC (32-34) % RDW (13.2-15.2) % Plt Count (140-440) K/mm3 Lymph % (Auto) (13.4-35.0) % [place] % (Auto) (0.0-7.3) % Eos % (Auto) (0.0-4.3) % Baso % (Auto) (0.0-1.8) % Lymph # (Auto) (1.2-5.4) K/mm3 [place] # (Auto) (0.0-0.8) K/mm3 Eos # (Auto) (0.0-0.4) K/mm3 Baso # (Auto) (0.0-0.1) K/mm3 Seg Neutrophils % (40.0-70.0) % Seg Neutrophils # (1.8-7.7) K/mm3 Sodium (137-145) mmol/L Potassium (3.6-5.0) mmol/L Chloride (98-107) mmol/L Carbon Dioxide (22-30) mmol/L Anion Gap mmol/L BUN (9-20) mg/dL Creatinine (0.8-1.3) mg/dL Estimated GFR ml/min BUN/Creatinine Ratio % Glucose (75-100) mg/dL Calcium (8.4-10.2) mg/dL Urine Color (Yellow) Urine Turbidity (Clear) Urine pH (5.0-7.0) Ur Specific [place] (1.003-1.030) Urine Protein (Negative) mg/dL Urine Glucose (UA) (Negative) mg/dL Urine Ketones (Negative) mg/dL Urine Blood (Negative) Urine Nitrite (Negative) Urine Bilirubin (Negative) Urine Urobilinogen (<2.0) mg/dL Ur Leukocyte Esterase (Negative) Urine WBC (Auto) (0.0-6.0) /HPF Urine RBC (Auto) (0.0-6.0) /HPF Urine Mucus /HPF Salicylates (2.8-20.0) mg/dL Urine Opiates Screen Negative Urine Methadone Screen Negative Acetaminophen (10.0-30.0) ug/mL Ur Barbiturates Screen Negative Ur Phencyclidine Scrn Negative Ur Amphetamines Screen Negative U Benzodiazepines Scrn Negative Urine Cocaine Screen Negative U Marijuana (THC) Screen Positive Drugs of Abuse Note Disclamer Plasma/Serum Alcohol (0-0.07) %
[2021-01-27] MEDS: ZIPRASIDONE MESYLATE 20 MG VIAL IM PRN ×2 (14:00→22:30)
[2021-01-28] MEDS ORDERED: WATER FOR INJ Sterile (PF) 10 ML ONE (07:02)
[2021-01-28] MEDS: ZIPRASIDONE MESYLATE 20 MG VIAL IM PRN (07:10)
[2021-01-28 09:14] VITALS: BP 131/83
[2021-01-28] MEDS: HALOPERIDOL 2 MG TAB PO SCH (10:03)
[2021-01-28] MEDS: VALPROIC ACID 250 MG CAP PO SCH (10:03)
--- NOTE | 2021-01-28 10:56 | Event Note ---
Date: 01/28/21 Patient seen this morning on psych rounding. No issues overnight. Patient resting comfortably.
== END 2021-01-28 15:17 ==
LOC: ED 22:37
DX: F31.9 Bipolar disorder, unspecified (principal); Z20.822 Contact with and (suspected) exposure to COVID-19; F20.9 Schizophrenia, unspecified; Z04.6 Encounter for general psychiatric examination, requested by authority; F17.200 Nicotine dependence, unspecified, uncomplicated; F12.10 Cannabis abuse, uncomplicated; Z79.899 Other long term (current) drug therapy
CPT/HCPCS: 36415; 80048; 80307; 81001; 85025; 96372; 99285; J3486; U0003; 80320; G0480

== ENCOUNTER 2021-02-24 02:15 | Emergency (ER) | payer SELFPAY | END 2021-02-24 02:18 | disposition left against medical advice (07) | LOC: ED 02:15 | DX: Z00.8 Encounter for other general examination (principal); Z53.21 Procedure and treatment not carried out due to patient leaving prior to being seen by health care provider ==

== ENCOUNTER 2021-03-15 20:47 | Emergency (ER) | payer OTHER, SELFPAY ==
--- NOTE | 2021-03-15 21:56 | Emergency Department Report ---
ED Psych HPI - General Chief Complaint: Medical Clearance Stated Complaint: MH EVAL/MANIC BEHAVIOR Time Seen by Provider: 03/15/21 21:54 Source: patient, RN notes reviewed Mode of arrival: Ambulatory - History of Present Illness Initial Comments: Patient is a 20-year-old male who presents emergency room with complaints of needing medical clearance to go to [facility]. Patient states that he went to [facility] because of having manic behavior. Patient states that he has a lot of life stressors. Patient dates he recently became homeless about a week ago. Patient patient has not slept for over 5 days. Patient states he wants to sleep. Patient states that he is already been accepted to [facility] and just needs clearance. Patient denies pain. Patient denies headache. Patient denies visual changes. Patient is oriented x3. Patient answering all questions appropriately but slowly. Patient denies recent travel. Patient denies recent international travel. Patient denies exposure to the novel coronavirus. Patient denies sick contacts. Patient denies fever and chills. Patient denies cough. Patient denies diarrhea. Patient denies coming in contact with anybody with symptoms of the novel coronavirus. MD Complaint: altered mental status, other -: Sudden Associated Psychiatric Symptoms: racing thoughts, auditory hallucinations, visual hallucinations History of same: Yes Quality: constant Improves With: none Worsens With: none Context: not taking psychiatric, significant life stressor Associated Symptoms: denies other symptoms - Related Data Home Medications Medication Instructions Recorded Confirmed Last Taken Divalproex ER [DepaKOTE ER] 1,500 mg PO QHS 12/18/19 12/18/19 Unknown OLANzapine [ZyPREXA] 10 mg PO DAILY 12/18/19 12/18/19 Unknown traZODone [Desyrel] 100 mg PO QHS 12/18/19 12/18/19 Unknown Previous Rx's Medication Instructions Recorded Last Taken Type Divalproex Dr [DepaKOTE DR] 250 mg PO BID 30 Days #60 tablet 03/16/21 Unknown Rx OLANzapine [ZyPREXA] 10 mg PO QHS 30 Days #30 tablet 03/16/21 Unknown Rx Sulfamethoxazole/Trimethoprim 1 each PO BID 10 Days #20 tablet 03/16/21 Unknown Rx [Bactrim DS TAB] Allergies Allergy/AdvReac Type Severity Reaction Status Date / Time No Known Allergies Allergy Unverified 08/13/17 04:29 ED Review of Systems ROS: Stated complaint: MH EVAL/MANIC BEHAVIOR Other details as noted in HPI Constitutional: denies: chills, fever Eyes: denies: eye pain, eye discharge, vision change ENT: denies: ear pain, throat pain Respiratory: denies: cough, shortness of breath, wheezing Cardiovascular: denies: chest pain, palpitations Endocrine: no symptoms reported Gastrointestinal: denies: abdominal pain, nausea, diarrhea Genitourinary: denies: urgency, dysuria Musculoskeletal: denies: back pain, joint swelling, arthralgia Skin: denies: rash, lesions Neurological: denies: headache, weakness, paresthesias Psychiatric: as per HPI, auditory hallucinations, visual hallucinations. denies: anxiety, depression, homicidal thoughts, suicidal thoughts Hematological/Lymphatic: denies: easy bleeding, easy bruising ED Past Medical Hx - Past Medical History Previous Medical History?: Yes Hx Psychiatric Treatment: Yes (ADHD, Schizophrenia, bipolar) - Surgical History Past Surgical History?: No - Family History Family history: no significant - Social History Smoking Status: Current Every Day Smoker Substance Use Type: Alcohol, Marijuana - Medications Home Medications: Home Medications Medication Instructions Recorded Confirmed Last Taken Type Divalproex ER [DepaKOTE ER] 1,500 mg PO QHS 12/18/19 12/18/19 Unknown History OLANzapine [ZyPREXA] 10 mg PO DAILY 12/18/19 12/18/19 Unknown History traZODone [Desyrel] 100 mg PO QHS 12/18/19 12/18/[address] [DepaKOTE DR] 250 mg PO BID 30 Days #60 tablet 03/16/21 Unknown Rx OLANzapine [ZyPREXA] 10 mg PO QHS 30 Days #30 tablet 03/16/21 Unknown Rx Sulfamethoxazole/Trimethoprim 1 each PO BID 10 Days #20 tablet 03/16/21 Unknown Rx [Bactrim DS TAB] ED Physical Exam - General Limitations: No Limitations General appearance: alert, in no apparent distress - Head Head exam: Present: atraumatic, normocephalic - Eye Eye exam: Present: normal appearance - ENT ENT exam: Present: mucous membranes moist - Neck Neck exam: Present: normal inspection - Respiratory Respiratory exam: Present: normal lung sounds bilaterally. Absent: respiratory distress, wheezes, rales - Cardiovascular Cardiovascular Exam: Present: regular rate, normal rhythm. Absent: systolic murmur, diastolic murmur, rubs, gallop - GI/Abdominal GI/Abdominal exam: Present: soft, normal bowel sounds. Absent: distended, tenderness, guarding - Rectal Rectal exam: Present: deferred - Extremities Exam Extremities exam: Present: normal inspection - Back Exam Back exam: Present: normal inspection - Neurological Exam Neurological exam: Present: alert, oriented X3 - Psychiatric Psychiatric exam: Present: flat affect. Absent: homicidal ideation, suicidal ideation - Expanded Psychiatric Exam Expanded Focused psych exam: Present: pressured speech, paranoid, loose associations - Skin Skin exam: Present: warm, dry, intact, normal color. Absent: rash ED Course Vital Signs 03/15/21 03/15/21 03/16/21 20:59 23:40 06:00 Temperature 99.3 F 98.2 F Pulse Rate 86 75 Respiratory 16 16 20 Rate Blood Pressure 117/52 Blood Pressure 128/76 [Left] O2 Sat by Pulse 98 98 Oximetry 03/16/21 03/16/21 06:09 11:19 Temperature 97.6 F Pulse Rate 68 Respiratory 16 20 Rate Blood Pressure Blood Pressure 108/33 [Left] O2 Sat by Pulse 98 100 Oximetry - Reevaluation(s) Reevaluation #1: The nurse contacted [facility] and [facility] states that he was just discharged from there. The patient will need medical clearance as well as mental health consultation for placement. 03/15/21 23:35 Reevaluation #2: Patient is medically cleared. Patient will remain in the ER as an ER hold and in our psychiatry area. Patient will remain in the ER until the patient is cleared by psychiatry and mental health team. Patient's final disposition will come from our psychiatry mental health team. I discussed all results and clinical findings with patient. I discussed plan of care with patient. Patient agrees with plan of care. 03/16/21 03:55 ED Medical Decision Making - Lab Data Result diagrams: 03/15/21 23:32 03/15/21 23:32 - Medical Decision Making Patient is a 20-year-old male who presents emergency room for manic symptoms and hallucinations. Patient also states he has not slept for 5 days. Patient recently discharged from [facility]. Patient has some recent life stressors and became homeless. Patient also sleep deprived. Patient had labs done which were essentially unremarkable except for UTI. Patient will be treated with oral antibiotics. Patient is medically cleared. Patient will remain in our psychiatry area of the ER. Patient will remain as an ER hold until the patient is cleared by our psychiatry team. Patient's final disposition will come from our psychiatry team. - Differential Diagnosis Laura, psychosis, mental health Critical care attestation.: If time is entered above; I have spent that time in minutes in the direct care of this critically ill patient, excluding procedure time. ED Disposition Clinical Impression: Laura, Hallucinations, Acute psychosis UTI (urinary tract infection) Qualifiers: Urinary tract infection type: acute cystitis Hematuria presence: with hematuria Qualified Code(s): N30.01 - Acute cystitis with hematuria Disposition: TO HOME OR SELFCARE Is pt being admited?: No Does the pt Need Aspirin: No Condition: Stable Instructions: Laura, Managing Bipolar Disorder, Antibiotic Medicine, Adult, [id number], Urinary Tract Infection, Adult Additional Instructions: Please follow-up using the following outpatient resources within the next 7 to 14 days. Additionally, you have been diagnosed with a possible urinary tract infection and have been prescribed antibiotics. Take all prescriptions exactly as prescribed. You will need to follow-up with a urologist given that urinary tract infections are atypical in males and require further investigation. Return to the emergency department should he develop thoughts of hurting yourself or others, hallucinations, or any concerning physical symptoms. Professional and Agency Contacts To help [facility] (25/03) [place] Crisis Line: Suicide Prevention Line: Crisis Text Line: Text START to 353422 Emergency: 911 Outpatient COMMUNITY Behavioral Health Resources: RUTH: [facility] [address] [place], [place] [address] [facility] [address] [place] [address] Saturday thru Saturday - 8am - 5pm Call to schedule an assessment for mental health and substance abuse programs [facility] Address: [address] [place] [address] Saturday thru Saturday- 7am-2pm [facility] Address: [address] [place], [place] [address] Saturday thru Saturday: 8:30AM-5PM Prescriptions: OLANzapine [ZyPREXA] 10 mg PO QHS 30 Days #30 tablet Sulfamethoxazole/Trimethoprim [Bactrim DS TAB] 1 each PO BID 10 Days #[address] [Annette ANDERS] 250 mg PO BID 30 Days #60 tablet Referrals: [facility] [Provider Group] - 3-5 Days Time of Disposition: 04:14
[2021-03-16 00:28] LABS: Alanine Aminotransferase 28 units/L (7-56); Albumin 3.9 g/dL (3.9-5); BUN/Creatinine Ratio 18; Blood Urea Nitrogen 21 mg/dL (9-20); Calcium 8.7 mg/dL (8.4-10.2); Hemolysis Index 8
[2021-03-16 00:47] LABS: Basophils % (Auto) 0.3 % (0.0-1.8); Eosinophils # (Auto) 0.1 K/mm3 (0.0-0.4); Eosinophils % (Auto) 1.4 % (0.0-4.3); Hematocrit 37.8 % (35.5-45.6); Hemoglobin 12.7 gm/dl (11.8-15.2); Lymphocytes # (Auto) 3.4 K/mm3 (1.2-5.4); Lymphocytes % (Auto) 42.7 % (13.4-35.0); Mean Corpuscular HGB Conc 34 % (32-34); Mean Corpuscular Volume 93 fl (84-94); Monocytes # (Auto) 0.7 K/mm3 (0.0-0.8); Monocytes % (Auto) 8.8 % (0.0-7.3); Platelet Count 171 K/mm3 (140-440); Red Blood Count 4.05 M/mm3 (3.65-5.03)
[2021-03-16 03:49] LABS: Bilirubin,Urine NEG (Negative); Blood,Urine SM (Negative); Color,Urine Amber (Yellow); Mucus,Urine 3+ /HPF
[2021-03-16 03:55] LABS: Amphetamine Screen,Urine Negative; Benzodiazepines Screen,Urine Negative; Cocaine Screen,Urine Negative; Methadone Screen,Urine Negative; Opiate Screen,Urine Negative
[2021-03-16 04:08] LABS: Cannabinoid Screen,Urine Positive
--- NOTE | 2021-03-16 11:10 | Consultation ---
History of Present Illness - Reason for Consult Consult date: 03/16/21 Reason for consult: PsychEvaluation - History of Present Psychiatric Illness Ed Note: Patient is a 20-year-old male who presents emergency room with complaints of needing medical clearance to go to [facility]. Patient states that he went to [facility] because of having manic behavior. Patient states that he has a lot of life stressors. Patient dates he recently became homeless about a week ago. Patient patient has not slept for over 5 days. Patient states he wants to sleep. Patient states that he is already been accepted to [facility] and just needs clearance. Patient denies pain. Patient denies headache. Patient denies visual changes. Patient is oriented x3. Patient answering all questions appropriately but slowly. Tristen Elam is a 20 year old male with a history of Schizophrenia who presents to the Ed for. The patient is known to this establishment. In my interview with the patient, he reports being non compiant with psychotropic medications. He reports having auditory/visual hallucinations stating " I see bugs crawling through my eys, it has been happening for a week since I spoke a cigarette." The patient denies any current suicidal ideation and denies hallucinations. PAST PSYCHIATRIC HISTORY Diagnoses:Schizophrenia Suicide attempts or Self-harm behavior: Denies Prior psychiatric hospitalizations: Yes Substance Abuse history: Marijuana Previous psychiatric medications tried: Denied Outpatient treatment: Denied SOCIAL HISTORY Marital Status: Single Living Arrangements: Lives alone Employment Status: employed Access to guns/weapons: Denied Education: 9th grade History of Abuse: Denied Legal History: None reported REVIEW OF SYSTEMS Constitutional: Negative for weight loss ENT: Negative for stridor Respiratory: Negative for cough or hemoptysis All other systems reviewed and are negative MENTAL STATUS EXAMINATION General Appearance and Behavior: Age appropriate, dressed appropriately, calm and cooperative Cooperation: Participating Psychomotor Behavior: psychomotor normal Mood: calm Affect and affective range: Congruent with stated mood Thought Process: goal directed Thought Content: with normal limits Speech: Normal volume, Regular rate and rhythm, Intellectual Functioning: Average Suicidal Ideation: Denied Homicidal Ideation: Denied Hallucinations: Auditory/ Visual Delusions: None elicited Impulse Control: Unimpaired Insight and Judgment: Limited insight and judgment, Memory: Normal Attention: Distractible Orientation: Alert, oriented Assessment and Plan (1) Schizophrenia-F20.9 Treatment plan Start-Zyprexa 10mg po QHS Start Depakote 250mg po BID Risks, benefits and alternatives of medications discussed with the patient, questions answered and consent obtained from patient. PSYCHOTHERAPY: Supportive psychotherapy provided MEDICAL: Per primary team DELIRIUM PRECAUTIONS: Please re-orient patient frequently, keep lights on during the day, and minimize benzodiazepines and opiates as these medications could worsen patient's confusion. CLOTHES DESIGNER: Per medical team DISPOSITION: Do not recommend acute inpatient psychiatric hospitalization at this time. Patient was informed that if suicidal/homicidal ideation/withdrawal symptoms arise, He should immediately seek for emergent assistance including but not limited to crisis hot line and emergency room. [employer] to give the patient resources for a mcc, transportation pass, CBT, med management and alcohol rehab programs The patient to follow up with outpatient psych in 7 to 14 days upon discharge The patient to abstain from alcohol use FOLLOW-UP: Will sign off Thank you for the consult. Please contact with any questions and/or concerns. Case staffed with Dr. Harden Medications and Allergies Allergies Allergy/AdvReac Type Severity Reaction Status Date / Time No Known Allergies Allergy Unverified 08/13/17 04:29 Home Medications Medication Instructions Recorded Confirmed Last Taken Type Divalproex ER [DepaKOTE ER] 1,500 mg PO QHS 12/18/19 12/18/19 Unknown History OLANzapine [ZyPREXA] 10 mg PO DAILY 12/18/19 12/18/19 Unknown History traZODone [Desyrel] 100 mg PO QHS 12/18/19 12/18/[address] [DepaKOTE DR] 250 mg PO BID 30 Days #60 tablet 03/16/21 Unknown Rx OLANzapine [ZyPREXA] 10 mg PO QHS 30 Days #30 tablet 03/16/21 Unknown Rx Sulfamethoxazole/Trimethoprim 1 each PO BID 10 Days #20 tablet 03/16/21 Unknown Rx [Bactrim DS TAB] Mental Status Exam - Vital signs Last Vital Signs Temp 98.2 F 03/16/21 06:00 Pulse 75 03/16/21 06:00 Resp 16 03/16/21 06:09 BP 128/76 03/16/21 06:00 Pulse Ox 98 03/16/21 06:09 Results Result Diagrams: 03/15/21 23:32 03/15/21 23:32 Abnormal lab results 03/15/21 03/15/21 03/15/21 Range/Units 23:32 23:32 23:32 Lymph % (Auto) 42.7 H (13.4-35.0) % Weston % (Auto) 8.8 H (0.0-7.3) % Chloride 107.7 H (98-107) mmol/L BUN 21 H (9-20) mg/dL Glucose 121 H (75-100) mg/dL AST 44 H (5-40) units/L Ur Specific [place] (1.003-1.030) Urine WBC (Auto) (0.0-6.0) /HPF Salicylates < 0.3 L (2.8-20.0) mg/dL Acetaminophen (10.0-30.0) ug/mL 03/15/21 03/16/21 Range/Units 23:32 03:35 Lymph % (Auto) (13.4-35.0) % Weston % (Auto) (0.0-7.3) % Chloride (98-107) mmol/L BUN (9-20) mg/dL Glucose (75-100) mg/dL AST (5-40) units/L Ur Specific [place] 1.031 H (1.003-1.030) Urine WBC (Auto) 8.0 H (0.0-6.0) /HPF Salicylates (2.8-20.0) mg/dL Acetaminophen 5.0 L (10.0-30.0) ug/mL All other labs normal.
[2021-03-16 11:20] VITALS: BP 108/33
--- NOTE | 2021-03-16 11:50 | Event Note ---
Date: 03/16/21 20-year-old male who presented with susanne and hallucinations. He was seen by my colleague and was medically cleared for psychiatric evaluation and placement. He was diagnosed with a possible UTI based on his urinalysis and given a prescription for antibiotics. The patient was seen by the psychiatry/mental health team today and they recommended discharge home with outpatient follow-up in 7 to 14 days. Vital signs have been stable. There were no acute events overnight. Will arrange for discharge with outpatient resources as well as refe rral to urologist given possible UTI in a male.
== END 2021-03-16 14:41 | disposition home or self-care (01) ==
LOC: ED 20:47
DX: F30.9 Manic episode, unspecified (principal); Z20.822 Contact with and (suspected) exposure to COVID-19; N39.0 Urinary tract infection, site not specified; F20.9 Schizophrenia, unspecified; F17.200 Nicotine dependence, unspecified, uncomplicated; F12.90 Cannabis use, unspecified, uncomplicated; Z72.89 Other problems related to lifestyle; Z79.899 Other long term (current) drug therapy
CPT/HCPCS: 36415; 80053; 80307; 81001; 85025; 87086; 99284; U0003; 80320; G0480

== ENCOUNTER 2021-04-14 23:18 | Emergency (ER) | payer SELFPAY ==
[2021-04-15 02:01] LABS: Basophils % (Auto) 0.2 % (0.0-1.8); Eosinophils # (Auto) 0.1 K/mm3 (0.0-0.4); Eosinophils % (Auto) 1.5 % (0.0-4.3); Hematocrit 41.6 % (35.5-45.6); Hemoglobin 13.7 gm/dl (11.8-15.2); Lymphocytes # (Auto) 3.4 K/mm3 (1.2-5.4); Lymphocytes % (Auto) 39.5 % (13.4-35.0); Mean Corpuscular HGB Conc 33 % (32-34); Mean Corpuscular Volume 95 fl (84-94); Monocytes # (Auto) 0.6 K/mm3 (0.0-0.8); Platelet Count 173 K/mm3 (140-440); Red Cell Distribution Width 14.2 % (13.2-15.2)
[2021-04-15 02:02] LABS: BUN/Creatinine Ratio 18; Blood Urea Nitrogen 20 mg/dL (9-20); Calcium 9.2 mg/dL (8.4-10.2); Hemolysis Index 6
--- NOTE | 2021-04-15 07:29 | Emergency Department Report ---
ED General Adult HPI - General Chief complaint: Medical Clearance Stated complaint: Psych/med clearance PUI?: No Time Seen by Provider: 04/15/21 07:19 Source: patient, RN notes reviewed, old records reviewed Mode of arrival: Ambulatory Limitations: No Limitations - History of Present Illness Initial comments: The patient was evaluated in the emergency department for symptoms described in the history of present illness. He/she was evaluated in the context of the global COVID-19 pandemic, which necessitated consideration that the patient might be at risk for infection with the virus that causes COVID-19. Institutional protocols and algorithms that pertain to the evaluation of patients at risk for COVID-19 are in a state of rapid change based on information released by regulatory bodies including the CDC and federal and state organizations. These policies and algorithms were followed during the patient's care in the emergency department. Please note that these policies, procedures and recommendations changed on a rapid basis. The patient is a 20-year-old gentleman. He presents to the ER today with request for psychiatric evaluation. He reports that he is essentially homeless, and has nowhere to go. He reports that he slept in a truck recently, and then was asked by the medical claims examiner of the truck to monitor sleep there. He also reports that his mother asked him to come to the emergency room. He denies physical pain at this time. He states at the moment he is not homicidal, not suicidal, and he is not experiencing hallucinations. He states that previously, he was feeling suicidal. This is resolved. He is not taking any medications currently. He denies headache, neck pain, chest pain, abdominal pain, cough, shortness of breath, urinary symptoms. He is asking for food to eat and drink. Improves with: none Worsens with: none Associated Symptoms: denies other symptoms - Related Data Home Medications Medication Instructions Recorded Confirmed Last Taken Divalproex ER [DepaKOTE ER] 1,500 mg PO QHS 12/18/19 12/18/19 Unknown OLANzapine [ZyPREXA] 10 mg PO DAILY 12/18/19 12/18/19 Unknown Previous Rx's Medication Instructions Recorded Last Taken Type OLANzapine [ZyPREXA] 10 mg PO QHS 30 Days #30 tablet 03/16/21 Unknown Rx Sulfamethoxazole/Trimethoprim 1 each PO BID 10 Days #20 tablet 03/16/21 Unknown Rx [Bactrim DS TAB] Divalproex Dr [DepaKOTE DR] 250 mg PO BID 30 Days #60 tablet 04/15/21 Unknown Rx OLANZapine [Olanzapine] 10 mg PO DAILY #30 tablet 04/15/21 Unknown Rx traZODone [Desyrel] 100 mg PO QHS #30 04/15/21 Unknown Rx Allergies Allergy/AdvReac Type Severity Reaction Status Date / Time No Known Allergies Allergy Unverified 08/13/17 04:29 ED Review of Systems ROS: Stated complaint: MEDICAL CLEARANCE Other details as noted in HPI Comment: All other systems reviewed and negative ED Past Medical Hx - Past Medical History Previous Medical History?: Yes Hx Psychiatric Treatment: Yes (ADHD, Schizophrenia, bipolar) - Social History Smoking Status: Current Every Day Smoker Substance Use Type: Alcohol, Marijuana - Medications Home Medications: Home Medications Medication Instructions Recorded Confirmed Last Taken Type Divalproex ER [DepaKOTE ER] 1,500 mg PO QHS 12/18/19 12/18/19 Unknown History OLANzapine [ZyPREXA] 10 mg PO DAILY 12/18/19 12/18/19 Unknown History OLANzapine [ZyPREXA] 10 mg PO QHS 30 Days #30 tablet 03/16/21 Unknown Rx Sulfamethoxazole/Trimethoprim 1 each PO BID 10 Days #20 tablet 03/16/21 Unknown Rx [Bactrim DS TAB] Divalproex Dr [DepaKOTE DR] 250 mg PO BID 30 Days #60 tablet 04/15/21 Unknown Rx OLANZapine [Olanzapine] 10 mg PO DAILY #30 tablet 04/15/21 Unknown Rx traZODone [Desyrel] 100 mg PO QHS #30 04/15/21 Unknown Rx ED Physical Exam - General Limitations: No Limitations General appearance: alert, in no apparent distress - Head Head exam: Present: atraumatic, normocephalic - Eye Eye exam: Present: normal appearance, EOMI. Absent: nystagmus - ENT ENT exam: Present: normal exam, normal orophraynx, mucous membranes moist, normal external ear exam - Neck Neck exam: Present: normal inspection, full ROM. Absent: tenderness, meningismus - Respiratory Respiratory exam: Present: normal lung sounds bilaterally. Absent: respiratory distress, wheezes, rales, rhonchi, stridor, decreased breath sounds - Cardiovascular Cardiovascular Exam: Present: normal rhythm, bradycardia, normal heart sounds. Absent: tachycardia, irregular rhythm, systolic murmur, diastolic murmur, rubs, gallop - GI/Abdominal GI/Abdominal exam: Present: soft. Absent: distended, tenderness, guarding, rebound, rigid, pulsatile mass - Rectal Rectal exam: Present: deferred - Extremities Exam Extremities exam: Present: normal inspection, full ROM, other (2+ pulses noted in the bilateral upper and lower extremities. There is no palpable cord. negative Homans sign. Muscular compartments are soft. The pelvis is stable.). Absent: pedal edema, calf tenderness - Back Exam Back exam: Present: normal inspection, full ROM. Absent: tenderness, CVA tenderness (R), CVA tenderness (L), paraspinal tenderness, vertebral tenderness - Neurological Exam Neurological exam: Present: alert, oriented X3, normal gait, other (No facial droop. Tongue midline. Extraocular movements intact bilaterally. Facial sensation intact to light touch in V1, V2, V3 distribution bilaterally. 5 and a 5 strength in 4 extremities. Sensation intact to light touch in 4 ex tremities.). Absent: motor sensory deficit - Psychiatric Psychiatric exam: Present: flat affect. Absent: homicidal ideation, suicidal ideation - Skin Skin exam: Present: warm, dry, intact, normal color. Absent: rash ED Course Vital Signs 04/15/21 04/15/21 00:37 07:34 Temperature 98.0 F 97.8 F Pulse Rate 50 L 64 Respiratory 20 Rate Blood Pressure 125/55 134/84 [Right] O2 Sat by Pulse 100 Oximetry - Reevaluation(s) Reevaluation #1: 04/15/21 08:23 Differential diagnosis, including but not limited to: Encounter for behavioral health screening examination, encounter for medical screening examination Assessment and plan: 20-year-old gentleman, who was afebrile, clinically sober, walks with a steady gait, GCS of 15, not homicidal, not suicidal at the moment, who is also homeless. This patient exhibits decision-making capacity, and also exhibits a rational thought process, and is not currently psychiatrically impaired to the point where he would not be able to care for himself. In my opinion, he does not meet criteria for 1013 hold or involuntary confinement. I suspect that there may be a component of presentation for secondary gain, placing this patient on a 1013 hold or involuntary hold would serve to reinforce maladaptive behaviors when patient has difficulty finding food and assisted. Laboratory studies reviewed and appreciated, are unremarkable, pyuria asymptomatic, not associate with any symptoms, does not require emergent antibiotic therapy at this time. At this point in time, this patient does not appear to have an emergent medical condition which would preclude psychiatric admission, evaluation, and consultation. However, I anticipate that the psychiatric team will recommend discharge with outpatient therapy and follow-up. In that case, this patient can be presented with a list of local homeless assisted resources. 04/15/21 10:26 As expected, the psychiatry team has recommended discharge. They have refilled his medications. He will be given a list of outpatient homeless assisted resources. Medically and psychiatrically suitable at this time for discharge with outpatient follow-up. ED Medical Decision Making - Lab Data Result diagrams: 04/15/21 00:56 04/15/21 00:56 Vital Signs 04/15/21 04/15/21 00:37 07:34 Temperature 98.0 F 97.8 F Pulse Rate 50 L 64 Respiratory 20 Rate Blood Pressure 125/55 134/84 [Right] O2 Sat by Pulse 100 Oximetry Lab Results 04/15/21 04/15/21 04/15/21 Range/Units 00:56 00:56 00:56 WBC (4.5-11.0) K/mm3 RBC (3.65-5.03) M/mm3 Hgb (11.8-15.2) gm/dl Hct (35.5-45.6) % MCV (84-94) fl MCH (28-32) pg MCHC (32-34) % RDW (13.2-15.2) % Plt Count (140-440) K/mm3 Lymph % (Auto) (13.4-35.0) % Travis % (Auto) (0.0-7.3) % Eos % (Auto) (0.0-4.3) % Baso % (Auto) (0.0-1.8) % Lymph # (Auto) (1.2-5.4) K/mm3 Travis # (Auto) (0.0-0.8) K/mm3 Eos # (Auto) (0.0-0.4) K/mm3 Baso # (Auto) (0.0-0.1) K/mm3 Seg Neutrophils % (40.0-70.0) % Seg Neutrophils # (1.8-7.7) K/mm3 Sodium 140 (137-145) mmol/L Potassium 4.2 (3.6-5.0) mmol/L Chloride 103.8 (98-107) mmol/L Carbon Dioxide 30 (22-30) mmol/L Anion Gap 10 mmol/L BUN 20 (9-20) mg/dL Creatinine 1.1 (0.8-1.3) mg/dL Estimated GFR > 60 ml/min BUN/Creatinine Ratio 18 % Glucose 94 (75-100) mg/dL Calcium 9.2 (8.4-10.2) mg/dL Urine Color (Yellow) Urine Turbidity (Clear) Urine pH (5.0-7.0) Ur Specific [place] (1.003-1.030) Urine Protein (Negative) mg/dL Urine Glucose (UA) (Negative) mg/dL Urine Ketones (Negative) mg/dL Urine Blood (Negative) Urine Nitrite (Negative) Urine Bilirubin (Negative) Urine Urobilinogen (<2.0) mg/dL Ur Leukocyte Esterase (Negative) Urine WBC (Auto) (0.0-6.0) /HPF Urine RBC (Auto) (0.0-6.0) /HPF U Epithel Cells (Auto) (0-13.0) /HPF Urine Mucus /HPF Salicylates < 0.3 L (2.8-20.0) mg/dL Urine Opiates Screen Urine Methadone Screen Acetaminophen 5.0 L (10.0-30.0) ug/mL Ur Barbiturates Screen Ur Phencyclidine Scrn Ur Amphetamines Screen U Benzodiazepines Scrn Urine Cocaine Screen U Marijuana (THC) Screen Drugs of Abuse Note Plasma/Serum Alcohol (0-0.07) % 04/15/21 04/15/21 04/15/21 Range/Units 00:56 00:56 Unknown WBC 8.6 (4.5-11.0) K/mm3 RBC 4.40 (3.65-5.03) M/mm3 Hgb 13.7 (11.8-15.2) gm/dl Hct 41.6 (35.5-45.6) % MCV 95 H (84-94) fl MCH 31 (28-32) pg MCHC 33 (32-34) % RDW 14.2 (13.2-15.2) % Plt Count 173 (140-440) K/mm3 Lymph % (Auto) 39.5 H (13.4-35.0) % Travis % (Auto) 7.0 (0.0-7.3) % Eos % (Auto) 1.5 (0.0-4.3) % Baso % (Auto) 0.2 (0.0-1.8) % Lymph # (Auto) 3.4 (1.2-5.4) K/mm3 Travis # (Auto) 0.6 (0.0-0.8) K/mm3 Eos # (Auto) 0.1 (0.0-0.4) K/mm3 Baso # (Auto) 0.0 (0.0-0.1) K/mm3 Seg Neutrophils % 51.8 (40.0-70.0) % Seg Neutrophils # 4.5 (1.8-7.7) K/mm3 Sodium (137-145) mmol/L Potassium (3.6-5.0) mmol/L Chloride (98-107) mmol/L Carbon Dioxide (22-30) mmol/L Anion Gap mmol/L BUN (9-20) mg/dL Creatinine (0.8-1.3) mg/dL Estimated GFR ml/min BUN/Creatinine Ratio % Glucose (75-100) mg/dL Calcium (8.4-10.2) mg/dL Urine Color Yellow (Yellow) Urine Turbidity Clear (Clear) Urine pH 5.0 (5.0-7.0) Ur Specific [place] 1.023 (1.003-1.030) Urine Protein <15 mg/dl (Negative) mg/dL Urine Glucose (UA) Neg (Negative) mg/dL Urine Ketones Neg (Negative) mg/dL Urine Blood Neg (Negative) Urine Nitrite Neg (Negative) Urine Bilirubin Neg (Negative) Urine Urobilinogen < 2.0 (<2.0) mg/dL Ur Leukocyte Esterase Neg (Negative) Urine WBC (Auto) 11.0 H (0.0-6.0) /HPF Urine RBC (Auto) 2.0 (0.0-6.0) /HPF U Epithel Cells (Auto) < 1.0 (0-13.0) /HPF Urine Mucus 3+ /HPF Salicylates (2.8-20.0) mg/dL Urine Opiates Screen Urine Methadone Screen Acetaminophen (10.0-30.0) ug/mL Ur Barbiturates Screen Ur Phencyclidine Scrn Ur Amphetamines Screen U Benzodiazepines Scrn Urine Cocaine Screen U Marijuana (THC) Screen Drugs of Abuse Note Plasma/Serum Alcohol < 0.01 (0-0.07) % 04/15/21 Range/Units Unknown WBC (4.5-11.0) K/mm3 RBC (3.65-5.03) M/mm3 Hgb (11.8-15.2) gm/dl Hct (35.5-45.6) % MCV (84-94) fl MCH (28-32) pg MCHC (32-34) % RDW (13.2-15.2) % Plt Count (140-440) K/mm3 Lymph % (Auto) (13.4-35.0) % Travis % (Auto) (0.0-7.3) % Eos % (Auto) (0.0-4.3) % Baso % (Auto) (0.0-1.8) % Lymph # (Auto) (1.2-5.4) K/mm3 Travis # (Auto) (0.0-0.8) K/mm3 Eos # (Auto) (0.0-0.4) K/mm3 Baso # (Auto) (0.0-0.1) K/mm3 Seg Neutrophils % (40.0-70.0) % Seg Neutrophils # (1.8-7.7) K/mm3 Sodium (137-145) mmol/L Potassium (3.6-5.0) mmol/L Chloride (98-107) mmol/L Carbon Dioxide (22-30) mmol/L Anion Gap mmol/L BUN (9-20) mg/dL Creatinine (0.8-1.3) mg/dL Estimated GFR ml/min BUN/Creatinine Ratio % Glucose (75-100) mg/dL Calcium (8.4-10.2) mg/dL Urine Color (Yellow) Urine Turbidity (Clear) Urine pH (5.0-7.0) Ur Specific [place] (1.003-1.030) Urine Protein (Negative) mg/dL Urine Glucose (UA) (Negative) mg/dL Urine Ketones (Negative) mg/dL Urine Blood (Negative) Urine Nitrite (Negative) Urine Bilirubin (Negative) Urine Urobilinogen (<2.0) mg/dL Ur Leukocyte Esterase (Negative) Urine WBC (Auto) (0.0-6.0) /HPF Urine RBC (Auto) (0.0-6.0) /HPF U Epithel Cells (Auto) (0-13.0) /HPF Urine Mucus /HPF Salicylates (2.8-20.0) mg/dL Urine Opiates Screen Negative Urine Methadone Screen Negative Acetaminophen (10.0-30.0) ug/mL Ur Barbiturates Screen Negative Ur Phencyclidine Scrn Negative Ur Amphetamines Screen Negative U Benzodiazepines Scrn Negative Urine Cocaine Screen Negative U Marijuana (THC) Screen Positive Drugs of Abuse Note Disclamer Plasma/Serum Alcohol (0-0.07) % Critical care attestation.: If time is entered above; I have spent that time in minutes in the direct care of this critically ill patient, excluding procedure time. ED Disposition Clinical Impression: Encounter for behavioral health screening, Encounter for medical screening examination Disposition: 01 HOME / SELF CARE / HOMELESS Is pt being admited?: No Does the pt Need Aspirin: No Condition: Good Additional Instructions: Please continue current outpatient medications. Please follow-up with an outpatient primary care doctor within the next month. Please follow-up with an outpatient psychiatrist or mental health specialist within the next 2 weeks. Please have a primary care doctor contact the medical records department to obta in copies of laboratory studies and follow-up on nonemergent incidental abnormal findings. Patient was found to have asymptomatic pyuria and laboratory studies, this should be followed up by her primary care doctor or health department. The [employer] [facility] [employer] is to take chronically homeless men and help them overcome their barriers, change them as human beings,making them productive and self- sufficient individuals. Each [facility] participant is housed at our facility for up to a year while they participate in transitional work (earning $7.40/hr for 30+ hours per week). All participants renounce dependency and remain drug and alcohol free. Personal support, case management, and workforce training is offered throughout the program. We also provide AA/NA Classes, GED classes, support in obtaining a contract driver's licenses,help setting up a bank account,and life skill preparation courses. IF A MAN IS COMMITTED TO BEING CLEAN, TO ADDRESSING THE PAST, AND TO WORKING, WE WILL HELP HIM GET A FARM EQUIPMENT MECHANIC JOB, TRANSPORTATION AND PERMANENT HOUSING WITHIN A YEAR. [employer] [address], [place] [id number] [email or web address] RESOURCES: [facility] NEED HELP? If you are in need of help or know someone who does, please contact us at [email or web address] , or come to our offices at [address] [place] [id number], Saturday-Saturday beginning at 8AM. [facility] Males only Admission at 7am Sat to Sat Address: [address] [place] [address] Client Engagement [phone] Regular program admission occurs Saturday through Saturday at 7:00 amand operates on a first come, first serve basis.Because we cant anticipate program availability in advance andprogram spots are in high demand, we recommend arriving early. Space fills up fast! Next steps can include: Assignment to a [facility] program bed Connection to and placement in a partner program, or Referral to a partner agency Professional and Agency Contacts To help [facility] (25/03) [place] Crisis Line: Suicide Prevention Line: Crisis Text Line: Text START to 289896 Emergency: 911 Outpatient COMMUNITY Behavioral Health Resources: [place]: [facility] [address] [place], [place] [address] [place]: [facility] [address] [place] [address] Saturday thru Saturday - 8am - 5pm Call to schedule an assessment for mental health and substance abuse programs [facility] Address: [address] [place], [place] Saturday thru Saturday- 7am-2pm [facility] Address: [address] [place], [place] [address]Saturday thru Saturday: 8:30AM-5PM [facility] only Admission at 4:30pm daily Address: [address] , [place] [address] [facility] Admission from 8am to 10am Daily No intake until 08/29/20 Address: [address] , [place] [id number] Prescriptions: traZODone [Desyrel] 100 mg PO QHS #30 Divalproex [Annette ANDERS] 250 mg PO BID 30 Days #60 tablet OLANZapine [Olanzapine] 10 mg PO DAILY #30 tablet Referrals: RUBEN ANDERS [Other] - 3-5 Days
[2021-04-15 07:35] VITALS: BP 134/84
[2021-04-15 07:46] LABS: Amphetamine Screen,Urine Negative; Benzodiazepines Screen,Urine Negative; Cocaine Screen,Urine Negative; Methadone Screen,Urine Negative; Opiate Screen,Urine Negative
[2021-04-15 07:47] LABS: Bilirubin,Urine NEG (Negative); Blood,Urine NEG (Negative); Color,Urine Yellow (Yellow); Mucus,Urine 3+ /HPF; Protein,Urine <15 mg/dL mg/dL (Negative); Urobilinogen,Urine < 2.0 mg/dL (<2.0)
[2021-04-15 08:16] LABS: Cannabinoid Screen,Urine Positive
--- NOTE | 2021-04-15 10:12 | Consultation ---
History of Present Illness - Reason for Consult Consult date: 04/15/21 Reason for consult: MHE - History of Present Psychiatric Illness Tristen Elam is a 20y/o male patient who was seen today. During my evaluation, the patient is sleeping. He easily arouses. He says he came to the hospital because his mother told him to come. He says he left [place] and was sleeping o [place]. He says "I thought I could make it." The patient says "I want to just take my medication and get something to eat." He says he's been off his meds for about 2 weeks. The patient says he takes depakote, trazodone and zyprexa. He could not recall the dosages. He denies SI/HI. He says "I used to be suicidal." He denies hallucinations. The patient does verbalize being depressed. PAST PSYCHIATRIC HISTORY Diagnoses: Schizophrenia Suicide attempts or Self-harm behavior: Yes Prior psychiatric hospitalizations: Yes Substance Abuse history: Marijuana Previous psychiatric medications tried: Noncompliant Outpatient treatment: Noncompliant PAST MEDICAL HISTORY: None reported Family Psychiatric History: None reported or documented SOCIAL HISTORY Marital Status: single Living Arrangements: with mom Employment Status: unemployed Access to guns/weapons: n/a Education: n/a History of Abuse: Legal History:Yes REVIEW OF SYSTEMS Constitutional: Negative for weight loss ENT: Negative for stridor Respiratory: Negative for cough or hemoptysis All other systems reviewed and are negative MENTAL STATUS EXAMINATION General Appearance and Behavior: Age appropriate, fair hygiene, wearing appropriate clothes, lying in bed, calm and cooperative Cooperation: Participating Psychomotor Behavior: unremarkable and within normal limits Mood: depressed Affect and affective range: restricted Thought Process: goal directed Thought Content: none Speech: Normal volume, Regular rate and rhythm, Suicidal Ideation: Denies SI Homicidal Ideation: Denies HI Hallucinations: Denies Delusions: None elicited Impulse Control: Impaired Insight and Judgment: Limited insight and judgment Memory: Short term memory intact Attention: unimpaired Orientation: Alert, oriented x 3 Diagnoses: History schizoaffective disorder Treatment Plan Olanzapine 10mg po daily Depakote DR 250mg po BID Trazodone 100mg po qhs Risks, benefits and alternatives of medications discussed with the patient, questions answered and consent obtained from patient. PSYCHOTHERAPY: Supportive psychotherapy provided MEDICAL: Per primary team DELIRIUM PRECAUTIONS: Please re-orient patient frequently, keep lights on during the day, and minimize benzodiazepines and opiates as these medications could worsen patient's confusion. OCEAN FORWARDER: DISPOSITION: Do not recommend acute inpatient psychiatric hospitalization at this time. FOLLOW-UP: will sign off Thank you for the consult. Please contact with any questions and/or concerns. Case discussed with Dr. Harden Medications and Allergies Allergies Allergy/AdvReac Type Severity Reaction Status Date / Time No Known Allergies Allergy Unverified 08/13/17 04:29 Home Medications Medication Instructions Recorded Confirmed Last Taken Type Divalproex ER [DepaKOTE ER] 1,500 mg PO QHS 12/18/19 12/18/19 Unknown History OLANzapine [ZyPREXA] 10 mg PO DAILY 12/18/19 12/18/19 Unknown History OLANzapine [ZyPREXA] 10 mg PO QHS 30 Days #30 tablet 03/16/21 Unknown Rx Sulfamethoxazole/Trimethoprim 1 each PO BID 10 Days #20 tablet 03/16/21 Unknown Rx [Bactrim DS TAB] Divalproex Dr [DepaKOTE DR] 250 mg PO BID 30 Days #60 tablet 04/15/21 Unknown Rx OLANZapine [Olanzapine] 10 mg PO DAILY #30 tablet 04/15/21 Unknown Rx traZODone [Desyrel] 100 mg PO QHS #30 04/15/21 Unknown Rx Mental Status Exam - Vital signs Last Vital Signs Temp 97.8 F 04/15/21 07:34 Pulse 64 04/15/21 07:34 Resp 20 04/15/21 07:34 BP 134/84 04/15/21 07:34 Pulse Ox 100 04/15/21 07:34 Results Result Diagrams: 04/15/21 00:56 04/15/21 00:56 Abnormal lab results 04/15/21 04/15/21 04/15/21 Range/Units 00:56 00:56 00:56 MCV 95 H (84-94) fl Lymph % (Auto) 39.5 H (13.4-35.0) % Urine WBC (Auto) (0.0-6.0) /HPF Salicylates < 0.3 L (2.8-20.0) mg/dL Acetaminophen 5.0 L (10.0-30.0) ug/mL 04/15/21 Range/Units Unknown MCV (84-94) fl Lymph % (Auto) (13.4-35.0) % Urine WBC (Auto) 11.0 H (0.0-6.0) /HPF Salicylates (2.8-20.0) mg/dL Acetaminophen (10.0-30.0) ug/mL All other labs normal.
== END 2021-04-15 10:54 | disposition home or self-care (01) ==
LOC: ED 23:18
DX: Z13.30 Encounter for screening examination for mental health and behavioral disorders, unspecified (principal); Z13.9 Encounter for screening, unspecified; F25.0 Schizoaffective disorder, bipolar type; F12.90 Cannabis use, unspecified, uncomplicated; F17.200 Nicotine dependence, unspecified, uncomplicated; Z79.899 Other long term (current) drug therapy
CPT/HCPCS: 36415; 80048; 80307; 80320; 81001; 85025; 87086; G0480

== ENCOUNTER 2022-01-01 00:37 | Emergency (ER) | payer SELFPAY ==
[2022-01-01 01:22] VITALS: BP 116/78
== END 2022-01-02 07:00 | disposition left against medical advice (07) ==
LOC: ED 00:37
DX: M79.602 Pain in left arm (principal); Z53.21 Procedure and treatment not carried out due to patient leaving prior to being seen by health care provider

== ENCOUNTER 2022-05-15 07:42 | Emergency (ER) | payer SELFPAY ==
[2022-05-15 07:52] VITALS: BP 147/74
--- NOTE | 2022-05-15 13:06 | Emergency Department Report ---
ED Extremity Problem HPI - General Chief complaint: Extremity Injury, Upper Stated complaint: BROKEN THUMB Time Seen by Provider: 05/15/22 13:00 Source: patient Mode of arrival: Ambulatory Limitations: No Limitations - Related Data Home Medications Medication Instructions Recorded Confirmed Last Taken Divalproex ER [DepaKOTE ER] 1,500 mg PO QHS 12/18/19 12/18/19 Unknown OLANzapine [ZyPREXA] 10 mg PO DAILY 12/18/19 12/18/19 Unknown Previous Rx's Medication Instructions Recorded Last Taken Type OLANzapine [ZyPREXA] 10 mg PO QHS 30 Days #30 tablet 03/16/21 Unknown Rx Sulfamethoxazole/Trimethoprim 1 each PO BID 10 Days #20 tablet 03/16/21 Unknown Rx [Bactrim DS TAB] Divalproex Dr [Annette ANDERS] 250 mg PO BID 30 Days #60 tablet 04/15/21 Unknown Rx OLANZapine [Olanzapine] 10 mg PO DAILY #30 tablet 04/15/21 Unknown Rx traZODone [Desyrel] 100 mg PO QHS #30 04/15/21 Unknown Rx Mupirocin [Bactroban 2%] 1 applic TP BID #1 tube 05/15/22 Unknown Rx Sulfamethoxazole/Trimethoprim 1 each PO BID #14 tab 05/15/22 Unknown Rx [Bactrim DS TAB] Allergies Allergy/AdvReac Type Severity Reaction Status Date / Time No Known Allergies Allergy Verified 05/15/22 07:54 ED Review of Systems ROS: Stated complaint: BROKEN THUMB Other details as noted in HPI ED Past Medical Hx - Past Medical History Hx Psychiatric Treatment: Yes (ADHD, Schizophrenia, bipolar) - Social History Smoking Status: Never Smoker Substance Use Type: None - Medications Home Medications: Home Medications Medication Instructions Recorded Confirmed Last Taken Type Divalproex ER [DepaKOTE ER] 1,500 mg PO QHS 12/18/19 12/18/19 Unknown History OLANzapine [ZyPREXA] 10 mg PO DAILY 12/18/19 12/18/19 Unknown History OLANzapine [ZyPREXA] 10 mg PO QHS 30 Days #30 tablet 03/16/21 Unknown Rx Sulfamethoxazole/Trimethoprim 1 each PO BID 10 Days #20 tablet 03/16/21 Unknown Rx [Bactrim DS TAB] Divalproex Dr [Annette ANDERS] 250 mg PO BID 30 Days #60 tablet 04/15/21 Unknown Rx OLANZapine [Olanzapine] 10 mg PO DAILY #30 tablet 04/15/21 Unknown Rx traZODone [Desyrel] 100 mg PO QHS #30 04/15/21 Unknown Rx Mupirocin [Bactroban 2%] 1 applic TP BID #1 tube 05/15/22 Unknown Rx Sulfamethoxazole/Trimethoprim 1 each PO BID #14 tab 05/15/22 Unknown Rx [Bactrim DS TAB] ED Physical Exam - General Limitations: No Limitations ED Course Vital Signs 05/15/22 07:49 Temperature 98.1 F Pulse Rate 63 Respiratory 16 Rate Blood Pressure 147/74 O2 Sat by Pulse 100 Oximetry Critical care attestation.: If time is entered above; I have spent that time in minutes in the direct care of this critically ill patient, excluding procedure time. ED Disposition Clinical Impression: Acute paronychia, Skin infection Disposition: 01 HOME / SELF CARE / HOMELESS Is pt being admited?: No Does the pt Need Aspirin: No Condition: Stable Instructions: Fingertip Infection, Cellulitis, Adult, [id number] Additional Instructions: Take medications as prescribed and follow up with primary care provider if no improvement or worsening symptoms. Return to ED as needed. Prescriptions: Sulfamethoxazole/Trimethoprim [Bactrim DS TAB] 1 each PO BID #14 tab Mupirocin [Bactroban 2%] 1 applic TP BID #1 tube Referrals: ELANA BARRAZA MD [Staff Physician] - 3-5 Days Time of Disposition: 13:09
== END 2022-05-15 18:00 | disposition left against medical advice (07) ==
LOC: ED 07:42
DX: L03.019 Cellulitis of unspecified finger (principal)
CPT/HCPCS: 99282